=== PATIENT | female | born 1950 | race Caucasian/White ===

== ENCOUNTER 2019-06-18 23:16 | Inpatient (IN) ==
[2019-06-18] MEDS ORDERED: ACETAMINOPHEN 500 MG TABLET ONE (23:27)
[2019-06-18] MEDS ORDERED: ACETAMINOPHEN 500 MG TABLET PO STA (23:37)
[2019-06-18] MEDS ORDERED: SODIUM CHLORIDE 0.9% 1,000 ML IV STA (23:37)
[2019-06-18] MEDS ORDERED: PIPERACILLIN/TAZOBACTAM 3,375 MG in SODIUM CHLORIDE 0.9% 100 ML IV STA (23:37)
[2019-06-18 23:58] LABS: Basophils # 0.1 10*3/uL (0.0-0.2); Basophils % 0.6 % (0.0-0.8); Eosinophils # 0.3 10*3/uL (0.0-0.87); Eosinophils % 1.7 % (0.00-10.9); Hemoglobin 10.3 GM/DL (12.0-16.0); Immature Granulocytes % 1.1 %; Immature Granulocytes Absolute 0.17 #; Lymphocytes % 6.3 % (21.3-54.2); Mean Corpuscular HGB Conc 32.2 GM/DL (32-36); Mean Platelet Volume 9.3 FL (9.6-12.0); Monocytes % 6.8 % (1.7-12.7); Neutrophils % 83.5 % (38.7-73.9); Platelet Count 359 T/CUMM (130-400); Red Blood Count 3.44 MC/CUMM (3.8-5.5); Red Cell Distribution Width 15.5 % (9.3-17.3); White Blood Count 15.7 T/CUMM (4-12)
[2019-06-19 00:09] LABS: PT Patient Result 10.8 SECS (9.6-12.2)
[2019-06-19 00:21] LABS: Apearance,Urine CLOUDY (Clear); Bacteria,Urine Many /HPF (Few); Bilirubin,Urine Negative (Negative); Blood, Urine Small mg/dL (Negative); Glucose,Urine (UA) >=500 mg/dL (Negative); Ketones,Urine Negative (Negative); Nitrite,Urine Negative (Negative); Protein,Urine 30 MG/DL; RBC,Urine 28 /HPF (0-4); Renal Epithelial Cells,Urine Few /HPF (<1); Urine Color Amber (Yellow); Urine Urobilinogen < 2.0 EU/DL (0.2-1.0); WBC,Urine 461 /HPF (0-6)
[2019-06-19 01:39] LABS: Albumin 3.1 G/DL (3.4-5.0); Bilirubin,Total 0.9 MG/DL (0.2-1.0); Calcium 8.6 MG/DL (8.5-10.1); Osmolality,Calculated 288.8 MOS/KG (273-304); Total Protein 7.3 G/DL (6.4-8.3)
[2019-06-19] MEDS ORDERED: SODIUM CHLORIDE 0.9% 1,000 ML IV STA (01:55)
[2019-06-19] MEDS ORDERED: DEXTROSE 50% 25 GM/50 ML SYRINGE IV PRN (03:31)
[2019-06-19] MEDS ORDERED: GLUCAGON 1 MG VIAL IM PRN (03:31)
[2019-06-19] MEDS ORDERED: INSULIN REGULAR 100 UNIT/ML SUBCUT ONE (03:43)
[2019-06-19] MEDS ORDERED: DOCUSATE SODIUM 100 MG CAPSULE PO PRN (03:45)
[2019-06-19] MEDS ORDERED: ALBUTEROL 2.5 MG/3 ML NEB RESP TX PRN (03:45)
[2019-06-19] MEDS ORDERED: ACETAMINOPHEN 325 MG TABLET PO PRN (03:45)
[2019-06-19] MEDS ORDERED: ONDANSETRON 4 MG/2 ML VIAL IV PRN (03:45)
[2019-06-19] MEDS: LEVOFLOXACIN INJ 750 MG in PREMIX 1 EACH IV SCH (03:54)
[2019-06-19] MEDS ORDERED: SODIUM CHLORIDE 0.9% 200 ML IV ONE (03:55)
[2019-06-19] MEDS: SODIUM CHLORIDE 0.9% 1,000 ML IV SCH ×2 (04:08→10:46)
[2019-06-19] MEDS ORDERED: NOREPINEPHRINE 4 MG/4 ML VIAL IV ONE (05:20)
[2019-06-19] MEDS ORDERED: NOREPINEPHRINE 8 MG in SODIUM CHLORIDE 0.9% 242 ML IV PRN (05:32)
[2019-06-19] MEDS: ALBUTEROL/IPRATROPIUM 3 ML NEB RESP TX SCH ×3 (07:45→19:52)
[2019-06-19] MEDS: INSULIN REGULAR 100 UNIT/ML SUBCUT SCH ×4 (09:03→21:19)
[2019-06-19] MEDS: methylPREDNISolone SOD SUC 40 MG/1 ML VIAL IV SCH ×2 (11:05→20:19)
[2019-06-19] MEDS: PIPERACILLIN/TAZOBACTAM 3,375 MG in SODIUM CHLORIDE 0.9% 100 ML IV SCH ×2 (13:19→23:49)
[2019-06-19] MEDS: INSULIN GLARGINE 100 UNIT/ML SUBCUT SCH (17:30)
[2019-06-19] MEDS: DULoxetine 30 MG CAPSULE PO SCH (17:31)
[2019-06-19] MEDS: GABAPENTIN 300 MG CAPSULE PO SCH (21:21)
[2019-06-19] MEDS: ENOXAPARIN 30 MG/0.3 ML SYRINGE SUBCUT SCH (21:21)
[2019-06-20] MEDS: SODIUM CHLORIDE 0.9% 1,000 ML IV SCH ×4 (00:06→16:11)
[2019-06-20] MEDS: ALBUTEROL/IPRATROPIUM 3 ML NEB RESP TX SCH ×5 (00:15→23:58)
[2019-06-20 04:15] LABS: Basophils % 0.1 % (0.0-0.8); Hematocrit 26.2 VOL% (35.7-47.0); Hemoglobin 8.4 GM/DL (12.0-16.0); Immature Granulocytes % 1.1 %; Immature Granulocytes Absolute 0.13 #; Lymphocytes # 0.5 10*3/uL (1.4-4.0); Lymphocytes % 4.1 % (21.3-54.2); Mean Corpuscular HGB Conc 32.1 GM/DL (32-36); Mean Corpuscular Volume 93.2 FL (87-102); Mean Platelet Volume 9.6 FL (9.6-12.0); Monocytes % 1.4 % (1.7-12.7); Neutrophils % 93.3 % (38.7-73.9); Platelet Count 265 T/CUMM (130-400); Red Blood Count 2.81 MC/CUMM (3.8-5.5); Red Cell Distribution Width 15.8 % (9.3-17.3); White Blood Count 12.1 T/CUMM (4-12)
[2019-06-20] MEDS: methylPREDNISolone SOD SUC 40 MG/1 ML VIAL IV SCH ×2 (04:28→12:11)
[2019-06-20 04:32] LABS: Albumin 2.4 G/DL (3.4-5.0); Bilirubin,Total 1.5 MG/DL (0.2-1.0); Calcium 7.9 MG/DL (8.5-10.1); Osmolality,Calculated 296.1 MOS/KG (273-304); Total Protein 6.1 G/DL (6.4-8.3)
[2019-06-20 04:39] LABS: Hypochromasia 1+; Lymphocytes 3 % (20-55); Platelet Estimate Adequate; Segmented Neutrophils 97 % (50-85); Total Cells Counted 100
[2019-06-20] MEDS ORDERED: LEVOTHYROXINE 137 MCG TABLET PO SCH (06:30)
[2019-06-20] MEDS: INSULIN GLARGINE 100 UNIT/ML SUBCUT SCH ×2 (08:10→21:20)
[2019-06-20] MEDS: DULoxetine 30 MG CAPSULE PO SCH (08:10)
[2019-06-20] MEDS: GABAPENTIN 300 MG CAPSULE PO SCH ×3 (08:10→21:20)
[2019-06-20] MEDS: INSULIN REGULAR 100 UNIT/ML SUBCUT SCH ×4 (08:11→21:22)
[2019-06-20] MEDS: PIPERACILLIN/TAZOBACTAM 3,375 MG in SODIUM CHLORIDE 0.9% 100 ML IV SCH ×2 (12:11→23:48)
[2019-06-20] MEDS ORDERED: FUROSEMIDE 40 MG/4 ML VIAL IV ONE (16:59)
[2019-06-20] MEDS ORDERED: INSULIN REGULAR 100 UNIT/ML SUBCUT ONE (18:25)
[2019-06-20] MEDS: ENOXAPARIN 30 MG/0.3 ML SYRINGE SUBCUT SCH (21:19)
[2019-06-21 05:05] LABS: Basophils % 0.1 % (0.0-0.8); Hemoglobin 8.9 GM/DL (12.0-16.0); Immature Granulocytes Absolute 0.16 #; Lymphocytes # 1.5 10*3/uL (1.4-4.0); Lymphocytes % 9.2 % (21.3-54.2); Mean Corpuscular HGB Conc 31.8 GM/DL (32-36); Mean Platelet Volume 9.4 FL (9.6-12.0); Neutrophils % 83.7 % (38.7-73.9); Platelet Count 292 T/CUMM (130-400); Red Blood Count 3.01 MC/CUMM (3.8-5.5); Red Cell Distribution Width 16.1 % (9.3-17.3); White Blood Count 16.6 T/CUMM (4-12)
[2019-06-21] MEDS: LEVOFLOXACIN INJ 750 MG in PREMIX 1 EACH IV SCH (05:14)
[2019-06-21 05:43] LABS: Albumin 2.4 G/DL (3.4-5.0); Bilirubin,Total 0.7 MG/DL (0.2-1.0); Calcium 7.9 MG/DL (8.5-10.1); Osmolality,Calculated 291.4 MOS/KG (273-304); Total Protein 6.1 G/DL (6.4-8.3)
[2019-06-21] MEDS: ALBUTEROL/IPRATROPIUM 3 ML NEB RESP TX SCH ×3 (08:50→20:00)
[2019-06-21] MEDS: GABAPENTIN 300 MG CAPSULE PO SCH ×3 (09:22→20:47)
[2019-06-21] MEDS: methylPREDNISolone SOD SUC 40 MG/1 ML VIAL IV SCH (09:23)
[2019-06-21] MEDS: INSULIN REGULAR 100 UNIT/ML SUBCUT SCH ×7 (09:23→20:48)
[2019-06-21] MEDS: DULoxetine 30 MG CAPSULE PO SCH (09:23)
[2019-06-21] MEDS: INSULIN GLARGINE 100 UNIT/ML SUBCUT SCH ×2 (11:41→20:49)
[2019-06-21] MEDS: PIPERACILLIN/TAZOBACTAM 3,375 MG in SODIUM CHLORIDE 0.9% 100 ML IV SCH ×2 (12:28→23:19)
[2019-06-21] MEDS: ENOXAPARIN 30 MG/0.3 ML SYRINGE SUBCUT SCH (20:47)
[2019-06-22] MEDS: ALBUTEROL/IPRATROPIUM 3 ML NEB RESP TX SCH ×4 (01:20→19:53)
[2019-06-22 05:01] LABS: Basophils % 0.2 % (0.0-0.8); Eosinophils % 0.1 % (0.00-10.9); Hematocrit 26.9 VOL% (35.7-47.0); Hemoglobin 8.3 GM/DL (12.0-16.0); Immature Granulocytes % 1.1 %; Immature Granulocytes Absolute 0.13 #; Lymphocytes # 1.7 10*3/uL (1.4-4.0); Lymphocytes % 14.8 % (21.3-54.2); Mean Corpuscular HGB Conc 30.9 GM/DL (32-36); Mean Corpuscular Volume 95.7 FL (87-102); Mean Platelet Volume 9.2 FL (9.6-12.0); Monocytes % 9.5 % (1.7-12.7); Neutrophils % 74.3 % (38.7-73.9); Platelet Count 277 T/CUMM (130-400); Red Blood Count 2.81 MC/CUMM (3.8-5.5); White Blood Count 11.3 T/CUMM (4-12)
[2019-06-22 05:39] LABS: Calcium 8.1 MG/DL (8.5-10.1); Osmolality,Calculated 291.4 MOS/KG (273-304)
[2019-06-22] MEDS: INSULIN REGULAR 100 UNIT/ML SUBCUT SCH ×7 (08:25→21:22)
[2019-06-22] MEDS: INSULIN GLARGINE 100 UNIT/ML SUBCUT SCH ×2 (08:26→21:21)
[2019-06-22] MEDS: GABAPENTIN 300 MG CAPSULE PO SCH ×3 (09:55→21:21)
[2019-06-22] MEDS: DULoxetine 30 MG CAPSULE PO SCH (09:55)
[2019-06-22] MEDS: methylPREDNISolone SOD SUC 40 MG/1 ML VIAL IV SCH (09:56)
[2019-06-22] MEDS: PIPERACILLIN/TAZOBACTAM 3,375 MG in SODIUM CHLORIDE 0.9% 100 ML IV SCH (12:35)
[2019-06-22] MEDS: ENOXAPARIN 30 MG/0.3 ML SYRINGE SUBCUT SCH (21:20)
[2019-06-23] MEDS: PIPERACILLIN/TAZOBACTAM 3,375 MG in SODIUM CHLORIDE 0.9% 100 ML IV SCH ×2 (00:16→12:45)
[2019-06-23] MEDS: ALBUTEROL/IPRATROPIUM 3 ML NEB RESP TX SCH ×4 (01:10→20:16)
[2019-06-23] MEDS: LEVOFLOXACIN INJ 750 MG in PREMIX 1 EACH IV SCH (04:29)
[2019-06-23 05:15] LABS: Basophils % 0.2 % (0.0-0.8); Eosinophils # 0.1 10*3/uL (0.0-0.87); Eosinophils % 0.8 % (0.00-10.9); Hematocrit 27.3 VOL% (35.7-47.0); Hemoglobin 8.5 GM/DL (12.0-16.0); Immature Granulocytes % 1.3 %; Immature Granulocytes Absolute 0.12 #; Lymphocytes # 1.7 10*3/uL (1.4-4.0); Lymphocytes % 18.2 % (21.3-54.2); Mean Corpuscular HGB Conc 31.1 GM/DL (32-36); Mean Corpuscular Volume 93.5 FL (87-102); Mean Platelet Volume 9.2 FL (9.6-12.0); Neutrophils % 69.5 % (38.7-73.9); Platelet Count 284 T/CUMM (130-400); Red Blood Count 2.92 MC/CUMM (3.8-5.5); Red Cell Distribution Width 16.1 % (9.3-17.3); White Blood Count 9.1 T/CUMM (4-12)
[2019-06-23 06:03] LABS: Calcium 8.1 MG/DL (8.5-10.1); Osmolality,Calculated 289.3 MOS/KG (273-304)
[2019-06-23] MEDS: INSULIN REGULAR 100 UNIT/ML SUBCUT SCH ×7 (08:08→21:48)
[2019-06-23] MEDS: INSULIN GLARGINE 100 UNIT/ML SUBCUT SCH ×2 (08:08→21:46)
[2019-06-23] MEDS: methylPREDNISolone SOD SUC 40 MG/1 ML VIAL IV SCH (09:22)
[2019-06-23] MEDS: DULoxetine 30 MG CAPSULE PO SCH (09:22)
[2019-06-23] MEDS: GABAPENTIN 300 MG CAPSULE PO SCH ×3 (09:22→21:52)
[2019-06-23] MEDS: ENOXAPARIN 30 MG/0.3 ML SYRINGE SUBCUT SCH (21:44)
[2019-06-24] MEDS: PIPERACILLIN/TAZOBACTAM 3,375 MG in SODIUM CHLORIDE 0.9% 100 ML IV SCH ×2 (00:52→13:57)
[2019-06-24] MEDS: ALBUTEROL/IPRATROPIUM 3 ML NEB RESP TX SCH ×4 (01:02→19:55)
[2019-06-24] MEDS ORDERED: DEXTROSE 10% 250 ML IV ONE (08:04)
[2019-06-24] MEDS ORDERED: DEXTROSE 10% 250 ML IV PRN (08:09)
[2019-06-24] MEDS: INSULIN REGULAR 100 UNIT/ML SUBCUT SCH ×6 (08:14→21:11)
[2019-06-24] MEDS: INSULIN GLARGINE 100 UNIT/ML SUBCUT SCH ×2 (08:15→20:23)
[2019-06-24] MEDS: methylPREDNISolone SOD SUC 40 MG/1 ML VIAL IV SCH (09:20)
[2019-06-24] MEDS: DULoxetine 30 MG CAPSULE PO SCH (09:21)
[2019-06-24] MEDS: GABAPENTIN 300 MG CAPSULE PO SCH ×3 (09:21→21:12)
[2019-06-24] MEDS: ENOXAPARIN 30 MG/0.3 ML SYRINGE SUBCUT SCH (21:11)
[2019-06-25] MEDS: ALBUTEROL/IPRATROPIUM 3 ML NEB RESP TX SCH ×3 (00:37→14:00)
[2019-06-25 05:00] LABS: Basophils % 0.4 % (0.0-0.8); Eosinophils # 0.2 10*3/uL (0.0-0.87); Hemoglobin 9.1 GM/DL (12.0-16.0); Immature Granulocytes % 1.2 %; Immature Granulocytes Absolute 0.13 #; Lymphocytes # 2.4 10*3/uL (1.4-4.0); Lymphocytes % 22.5 % (21.3-54.2); Mean Corpuscular HGB Conc 31.4 GM/DL (32-36); Mean Corpuscular Volume 94.2 FL (87-102); Mean Platelet Volume 9.2 FL (9.6-12.0); Monocytes % 9.5 % (1.7-12.7); Neutrophils % 64.4 % (38.7-73.9); Platelet Count 299 T/CUMM (130-400); Red Blood Count 3.08 MC/CUMM (3.8-5.5); Red Cell Distribution Width 15.9 % (9.3-17.3); White Blood Count 10.7 T/CUMM (4-12)
[2019-06-25 05:18] LABS: Calcium 8.5 MG/DL (8.5-10.1); Osmolality,Calculated 287.5 MOS/KG (273-304)
[2019-06-25] MEDS ORDERED: LEVOFLOXACIN 750 MG TABLET PO SCH (06:00)
[2019-06-25] MEDS: INSULIN REGULAR 100 UNIT/ML SUBCUT SCH ×2 (08:23→12:39)
[2019-06-25] MEDS ORDERED: predniSONE 20 MG TABLET PO SCH ×2 (09:00)
[2019-06-25] MEDS: INSULIN GLARGINE 100 UNIT/ML SUBCUT SCH (09:29)
[2019-06-25] MEDS: GABAPENTIN 300 MG CAPSULE PO SCH ×2 (09:33→15:07)
[2019-06-25] MEDS: DULoxetine 30 MG CAPSULE PO SCH (09:33)
[2019-06-25 12:39] VITALS: BP 128/73
== END 2019-06-25 16:25 | disposition home or self-care (01) | DRG 871 ==
LOC: N.ED 23:16 → SUATTDRO 06-19 02:34 → N.EDINP 06-19 02:34 → N.CC 06-19 02:48 → N.3E 06-21 16:43
PROVIDERS: ADMIT Internal Medicine; ATTEND Internal Medicine

== ENCOUNTER 2019-07-19 17:42 | Inpatient (IN) ==
[2019-07-19] MEDS ORDERED: DEXTROSE 50% 25 GM/50 ML VIAL IV STA (18:27)
[2019-07-19] MEDS ORDERED: CALCIUM CHLORIDE 1,000 MG/10 ML SYRINGE IV STA (18:27)
[2019-07-19] MEDS ORDERED: ALBUTEROL NEB SOLN 5 MG/ML 20 ML/BOTTLE CONT NEB STA (18:27)
[2019-07-19] MEDS ORDERED: INSULIN REGULAR 100 UNIT/ML IV ONE (18:27)
[2019-07-19] MEDS ORDERED: SODIUM CHLORIDE 0.9% 1,000 ML IV STA (18:27)
[2019-07-19] MEDS ORDERED: SODIUM BICARB INJ 50 MEQ in DEXTROSE 5% 1,000 ML IV SCH (18:30)
[2019-07-19] MEDS ORDERED: SODIUM BICARBONATE 50 MEQ/50 ML VIAL IV ONE (18:35)
[2019-07-19] MEDS ORDERED: DEXTROSE 50% 25 GM/50 ML SYRINGE IV ONE (18:37)
[2019-07-19 18:44] LABS: Basophils % 0.4 % (0.0-0.8); Eosinophils # 0.3 10*3/uL (0.0-0.87); Eosinophils % 4.4 % (0.00-10.9); Hemoglobin 11.1 GM/DL (12.0-16.0); Immature Granulocytes % 1.7 %; Immature Granulocytes Absolute 0.12 #; Lymphocytes # 1.4 10*3/uL (1.4-4.0); Lymphocytes % 20.3 % (21.3-54.2); Mean Corpuscular HGB Conc 31.7 GM/DL (32-36); Mean Corpuscular Volume 92.3 FL (87-102); Mean Platelet Volume 9.5 FL (9.6-12.0); Monocytes % 7.1 % (1.7-12.7); Neutrophils % 66.1 % (38.7-73.9); Platelet Count 271 T/CUMM (130-400); Red Blood Count 3.79 MC/CUMM (3.8-5.5); White Blood Count 6.9 T/CUMM (4-12)
[2019-07-19 18:59] LABS: Alanine Aminotransferase 20 U/L (13-56); Albumin 2.9 G/DL (3.4-5.0); Alkaline Phosphatase 182 U/L (45-117); Aspartate Amino Transferase 14 U/L (0-37); Bilirubin,Total < 0.39 MG/DL (0.2-1.0); Blood Urea Nitrogen 71 MG/DL (7-18); Calcium 7.8 MG/DL (8.5-10.1); Estimated Glom Filtration Rate 13 ML/MIN; Ferritin 109.2 ng/ml (8-252); Glucose 210 MG/DL (74-106); Osmolality,Calculated 290.5 MOS/KG (273-304); Total Protein 6.9 G/DL (6.4-8.3); Troponin I < 0.015 NG/ML (0.00-0.045)
[2019-07-19 19:11] LABS: Apearance,Urine Slightly Hazy (Clear); Bacteria,Urine Occasional /HPF (Few); Bilirubin,Urine Negative (Negative); Blood, Urine Moderate mg/dL (Negative); Glucose,Urine (UA) 50 mg/dL (Negative); Ketones,Urine Negative (Negative); Nitrite,Urine Negative (Negative); Protein,Urine Negative; RBC,Urine 7 /HPF (0-4); Squamous Epithelial Cell,Urine Occasional /HPF (0-10); Urine Color Yellow (Yellow); Urine Specific Gravity 1.006 (1.001-1.035); Urine Urobilinogen < 2.0 EU/DL (0.2-1.0); WBC,Urine 80 /HPF (0-6)
[2019-07-19] MEDS ORDERED: LEVOFLOXACIN INJ 750 MG in PREMIX 1 EACH IV STA (19:13)
[2019-07-19] MEDS ORDERED: fentaNYL 100 MCG/2 ML VIAL IV STA (19:16)
[2019-07-19] MEDS ORDERED: DEXTROSE 50% 25 GM/50 ML SYRINGE IV PRN (23:35)
[2019-07-19] MEDS ORDERED: HYDROmorphone 2 MG/1 ML VIAL IV PRN (23:35)
[2019-07-19] MEDS ORDERED: ALBUTEROL 2.5 MG/3 ML NEB RESP TX PRN (23:35)
[2019-07-19] MEDS ORDERED: MECLIZINE 25 MG TABLET PO PRN (23:35)
[2019-07-19] MEDS ORDERED: MELATONIN 3 MG TABLET PO PRN (23:35)
[2019-07-19] MEDS ORDERED: ONDANSETRON 4 MG/2 ML VIAL IV PRN (23:35)
[2019-07-19] MEDS ORDERED: GLUCAGON 1 MG VIAL IM PRN (23:35)
[2019-07-20] MEDS: ALBUTEROL/IPRATROPIUM 3 ML NEB RESP TX SCH ×4 (00:53→19:30)
[2019-07-20] MEDS: SODIUM CHLORIDE 0.9% 1,000 ML IV SCH ×2 (01:52→12:47)
[2019-07-20] MEDS: MAGNESIUM CHLORIDE 64 MG TABLET PO SCH ×3 (01:53→22:00)
[2019-07-20] MEDS: PIPERACILLIN/TAZOBACTAM 3,375 MG in SODIUM CHLORIDE 0.9% 100 ML IV SCH ×2 (01:53→13:46)
[2019-07-20] MEDS: METOPROLOL TARTRATE 25 MG TABLET PO SCH ×3 (01:54→22:00)
[2019-07-20] MEDS: azaTHIOprine 50 MG TABLET PO SCH ×3 (01:54→22:00)
[2019-07-20] MEDS: CALCIUM (CARBONATE)/VITAMIN D 600 MG-400 UNIT TABLET PO SCH ×3 (01:54→22:00)
[2019-07-20 05:26] LABS: Basophils % 0.4 % (0.0-0.8); Eosinophils # 0.3 10*3/uL (0.0-0.87); Hematocrit 29.4 VOL% (35.7-47.0); Hemoglobin 9.4 GM/DL (12.0-16.0); Immature Granulocytes Absolute 0.14 #; Lymphocytes # 1.6 10*3/uL (1.4-4.0); Lymphocytes % 22.7 % (21.3-54.2); Mean Corpuscular Volume 92.2 FL (87-102); Mean Platelet Volume 9.6 FL (9.6-12.0); Monocytes % 8.8 % (1.7-12.7); Neutrophils % 62.1 % (38.7-73.9); Platelet Count 249 T/CUMM (130-400); Red Blood Count 3.19 MC/CUMM (3.8-5.5); Red Cell Distribution Width 14.9 % (9.3-17.3)
[2019-07-20 05:59] LABS: Calcium 8.1 MG/DL (8.5-10.1); Osmolality,Calculated 293.1 MOS/KG (273-304); Thyroid Stimulating Hormone 91.8 uIU/ml (0.358-3.74)
[2019-07-20] MEDS: LEVOTHYROXINE 150 MCG TABLET PO SCH (06:07)
[2019-07-20] MEDS: INSULIN REGULAR 100 UNIT/ML SUBCUT SCH ×4 (08:23→22:01)
[2019-07-20] MEDS: INSULIN GLARGINE 100 UNIT/ML SUBCUT SCH (09:29)
[2019-07-20] MEDS: CYCLOBENZAPRINE 10 MG TABLET PO PRN (09:31)
[2019-07-20] MEDS: PILOCARPINE 5 MG TABLET PO SCH ×3 (09:31→22:00)
[2019-07-20] MEDS: CETIRIZINE 10 MG TABLET PO SCH (09:31)
[2019-07-20] MEDS: DULoxetine 30 MG CAPSULE PO SCH (09:33)
[2019-07-20] MEDS: GABAPENTIN 300 MG CAPSULE PO SCH ×3 (09:33→22:00)
[2019-07-20] MEDS: PANTOPRAZOLE 40 MG TABLET PO SCH (09:33)
[2019-07-20] MEDS: ACETAMINOPHEN 325 MG TABLET PO PRN (09:34)
[2019-07-20] MEDS: ROSUVASTATIN 20 MG TABLET PO SCH (09:39)
[2019-07-21] MEDS: ALBUTEROL/IPRATROPIUM 3 ML NEB RESP TX SCH ×4 (01:06→19:56)
[2019-07-21] MEDS: PIPERACILLIN/TAZOBACTAM 3,375 MG in SODIUM CHLORIDE 0.9% 100 ML IV SCH ×2 (04:01→15:18)
[2019-07-21 04:51] LABS: Basophils # 0.1 10*3/uL (0.0-0.2); Basophils % 0.6 % (0.0-0.8); Eosinophils # 0.3 10*3/uL (0.0-0.87); Eosinophils % 3.4 % (0.00-10.9); Hematocrit 31.7 VOL% (35.7-47.0); Immature Granulocytes % 2.8 %; Immature Granulocytes Absolute 0.22 #; Lymphocytes # 1.8 10*3/uL (1.4-4.0); Lymphocytes % 22.3 % (21.3-54.2); Mean Corpuscular HGB Conc 31.5 GM/DL (32-36); Mean Platelet Volume 9.3 FL (9.6-12.0); Monocytes % 8.5 % (1.7-12.7); Neutrophils % 62.4 % (38.7-73.9); Platelet Count 272 T/CUMM (130-400); Red Blood Count 3.41 MC/CUMM (3.8-5.5); White Blood Count 7.9 T/CUMM (4-12)
[2019-07-21 05:16] LABS: Calcium 8.2 MG/DL (8.5-10.1); Osmolality,Calculated 282.8 MOS/KG (273-304)
[2019-07-21] MEDS: LEVOTHYROXINE 150 MCG TABLET PO SCH (05:34)
[2019-07-21] MEDS: INSULIN REGULAR 100 UNIT/ML SUBCUT SCH ×4 (07:48→22:26)
[2019-07-21] MEDS: DULoxetine 30 MG CAPSULE PO SCH (08:32)
[2019-07-21] MEDS: CYCLOBENZAPRINE 10 MG TABLET PO PRN (08:32)
[2019-07-21] MEDS: MAGNESIUM CHLORIDE 64 MG TABLET PO SCH ×2 (08:32→22:27)
[2019-07-21] MEDS: PANTOPRAZOLE 40 MG TABLET PO SCH (08:32)
[2019-07-21] MEDS: GABAPENTIN 300 MG CAPSULE PO SCH ×3 (08:33→22:27)
[2019-07-21] MEDS: azaTHIOprine 50 MG TABLET PO SCH ×2 (08:33→22:26)
[2019-07-21] MEDS: PILOCARPINE 5 MG TABLET PO SCH ×3 (08:33→22:27)
[2019-07-21] MEDS: CETIRIZINE 10 MG TABLET PO SCH (08:33)
[2019-07-21] MEDS: ROSUVASTATIN 20 MG TABLET PO SCH (08:34)
[2019-07-21] MEDS: CALCIUM (CARBONATE)/VITAMIN D 600 MG-400 UNIT TABLET PO SCH ×2 (08:34→22:26)
[2019-07-21] MEDS: METOPROLOL TARTRATE 25 MG TABLET PO SCH ×2 (08:34→22:26)
[2019-07-21] MEDS: INSULIN GLARGINE 100 UNIT/ML SUBCUT SCH (10:54)
[2019-07-21] MEDS ORDERED: TAMSULOSIN 0.4 MG CAPSULE PO ONE (11:25)
[2019-07-21] MEDS: ACETAMINOPHEN 325 MG TABLET PO PRN (13:15)
[2019-07-22] MEDS: ALBUTEROL/IPRATROPIUM 3 ML NEB RESP TX SCH ×4 (00:35→20:23)
[2019-07-22] MEDS: SODIUM CHLORIDE 0.9% 1,000 ML IV SCH ×4 (03:13→21:35)
[2019-07-22] MEDS: PIPERACILLIN/TAZOBACTAM 3,375 MG in SODIUM CHLORIDE 0.9% 100 ML IV SCH ×2 (04:32→16:16)
[2019-07-22 05:23] LABS: Basophils % 0.5 % (0.0-0.8); Eosinophils # 0.2 10*3/uL (0.0-0.87); Eosinophils % 2.9 % (0.00-10.9); Hematocrit 30.9 VOL% (35.7-47.0); Hemoglobin 9.8 GM/DL (12.0-16.0); Immature Granulocytes % 1.8 %; Immature Granulocytes Absolute 0.14 #; Lymphocytes # 1.4 10*3/uL (1.4-4.0); Lymphocytes % 17.6 % (21.3-54.2); Mean Corpuscular HGB Conc 31.7 GM/DL (32-36); Mean Corpuscular Volume 91.4 FL (87-102); Mean Platelet Volume 9.1 FL (9.6-12.0); Monocytes % 6.4 % (1.7-12.7); Neutrophils % 70.8 % (38.7-73.9); Platelet Count 275 T/CUMM (130-400); Red Blood Count 3.38 MC/CUMM (3.8-5.5); Red Cell Distribution Width 14.7 % (9.3-17.3); White Blood Count 7.9 T/CUMM (4-12)
[2019-07-22 06:02] LABS: Calcium 8.6 MG/DL (8.5-10.1); Osmolality,Calculated 281.8 MOS/KG (273-304)
[2019-07-22] MEDS: LEVOTHYROXINE 150 MCG TABLET PO SCH (06:41)
[2019-07-22] MEDS: INSULIN REGULAR 100 UNIT/ML SUBCUT SCH ×4 (09:02→21:15)
[2019-07-22] MEDS: MAGNESIUM CHLORIDE 64 MG TABLET PO SCH ×2 (09:03→21:15)
[2019-07-22] MEDS: CALCIUM (CARBONATE)/VITAMIN D 600 MG-400 UNIT TABLET PO SCH ×2 (09:03→21:14)
[2019-07-22] MEDS: CETIRIZINE 10 MG TABLET PO SCH (09:03)
[2019-07-22] MEDS: GABAPENTIN 300 MG CAPSULE PO SCH ×3 (09:03→21:15)
[2019-07-22] MEDS: INSULIN GLARGINE 100 UNIT/ML SUBCUT SCH (09:03)
[2019-07-22] MEDS: PANTOPRAZOLE 40 MG TABLET PO SCH (09:03)
[2019-07-22] MEDS: ROSUVASTATIN 20 MG TABLET PO SCH (09:03)
[2019-07-22] MEDS: TAMSULOSIN 0.4 MG CAPSULE PO SCH (09:03)
[2019-07-22] MEDS: DULoxetine 30 MG CAPSULE PO SCH (09:03)
[2019-07-22] MEDS: azaTHIOprine 50 MG TABLET PO SCH ×2 (09:03→21:15)
[2019-07-22] MEDS: PILOCARPINE 5 MG TABLET PO SCH ×3 (09:03→21:15)
[2019-07-22] MEDS: METOPROLOL TARTRATE 25 MG TABLET PO SCH ×2 (09:04→21:14)
[2019-07-23] MEDS: ALBUTEROL/IPRATROPIUM 3 ML NEB RESP TX SCH ×2 (01:47→07:34)
[2019-07-23] MEDS: PIPERACILLIN/TAZOBACTAM 3,375 MG in SODIUM CHLORIDE 0.9% 100 ML IV SCH (03:44)
[2019-07-23] MEDS: LEVOTHYROXINE 150 MCG TABLET PO SCH (06:09)
[2019-07-23 06:38] LABS: Basophils # 0.1 10*3/uL (0.0-0.2); Basophils % 0.6 % (0.0-0.8); Eosinophils # 0.2 10*3/uL (0.0-0.87); Eosinophils % 2.6 % (0.00-10.9); Hematocrit 31.9 VOL% (35.7-47.0); Immature Granulocytes % 2.6 %; Immature Granulocytes Absolute 0.22 #; Lymphocytes # 1.5 10*3/uL (1.4-4.0); Lymphocytes % 17.8 % (21.3-54.2); Mean Corpuscular HGB Conc 31.3 GM/DL (32-36); Mean Corpuscular Volume 93.8 FL (87-102); Mean Platelet Volume 8.9 FL (9.6-12.0); Monocytes % 6.5 % (1.7-12.7); Neutrophils % 69.9 % (38.7-73.9); Platelet Count 287 T/CUMM (130-400); Red Cell Distribution Width 14.8 % (9.3-17.3); White Blood Count 8.4 T/CUMM (4-12)
[2019-07-23 06:55] LABS: Calcium 8.5 MG/DL (8.5-10.1); Osmolality,Calculated 280.7 MOS/KG (273-304)
[2019-07-23] MEDS: INSULIN REGULAR 100 UNIT/ML SUBCUT SCH ×2 (08:09→11:35)
[2019-07-23 08:13] VITALS: BP 146/76
[2019-07-23] MEDS: DULoxetine 30 MG CAPSULE PO SCH (08:50)
[2019-07-23] MEDS: MAGNESIUM CHLORIDE 64 MG TABLET PO SCH (08:50)
[2019-07-23] MEDS: PANTOPRAZOLE 40 MG TABLET PO SCH (08:50)
[2019-07-23] MEDS: TAMSULOSIN 0.4 MG CAPSULE PO SCH (08:50)
[2019-07-23] MEDS: INSULIN GLARGINE 100 UNIT/ML SUBCUT SCH (08:51)
[2019-07-23] MEDS: azaTHIOprine 50 MG TABLET PO SCH (08:51)
[2019-07-23] MEDS: GABAPENTIN 300 MG CAPSULE PO SCH (08:51)
[2019-07-23] MEDS: CETIRIZINE 10 MG TABLET PO SCH (08:51)
[2019-07-23] MEDS: CALCIUM (CARBONATE)/VITAMIN D 600 MG-400 UNIT TABLET PO SCH (08:51)
[2019-07-23] MEDS: METOPROLOL TARTRATE 25 MG TABLET PO SCH (08:51)
[2019-07-23] MEDS: ROSUVASTATIN 20 MG TABLET PO SCH (08:51)
[2019-07-23] MEDS: SODIUM CHLORIDE 0.9% 1,000 ML IV SCH (08:52)
[2019-07-23] MEDS: PILOCARPINE 5 MG TABLET PO SCH (08:53)
== END 2019-07-23 11:51 | disposition home or self-care (01) | DRG 683 ==
LOC: N.ED 17:42 → N.EDINP 22:23 → N.3E 23:04
PROVIDERS: ADMIT Internal Medicine; ATTEND Internal Medicine

== ENCOUNTER 2021-01-03 18:36 | Inpatient (IN) ==
[2021-01-03 20:30] LABS: Basophils # 0.1 10*3/uL (0.0-0.2); Basophils % 0.4 % (0.0-0.8); Eosinophils % 0.2 % (0.00-10.9); Hematocrit 47.8 VOL% (35.7-47.0); Hemoglobin 14.7 GM/DL (12.0-16.0); Immature Granulocytes % 1.2 %; Immature Granulocytes Absolute 0.23 #; Lymphocytes # 0.7 10*3/uL (1.4-4.0); Lymphocytes % 3.5 % (21.3-54.2); Mean Corpuscular HGB Conc 30.8 GM/DL (32-36); Mean Corpuscular Volume 104.6 FL (87-102); Mean Platelet Volume 10.4 FL (9.6-12.0); Monocytes % 3.2 % (1.7-12.7); NRBC # 0.02 10*3/uL; Neutrophils % 91.5 % (38.7-73.9); Platelet Count 216 T/CUMM (130-400); Red Blood Count 4.57 MC/CUMM (3.8-5.5); Red Cell Distribution Width 17.4 % (9.3-17.3); White Blood Count 19.9 T/CUMM (4-12)
[2021-01-03] MEDS ORDERED: VANCOMYCIN INJ 1,000 MG in SODIUM CHLORIDE 0.9% 250 ML IV STA (20:45)
[2021-01-03] MEDS ORDERED: PIPERACILLIN/TAZOBACTAM 3,375 MG in SODIUM CHLORIDE 0.9% 100 ML IV STA (20:45)
[2021-01-03 20:46] LABS: Alanine Aminotransferase 16 U/L (13-56); Albumin 3.3 G/DL (3.4-5.0); Alkaline Phosphatase 120 U/L (45-117); Aspartate Amino Transferase 18 U/L (0-37); Blood Urea Nitrogen 37 MG/DL (7-18); Calcium 7.7 MG/DL (8.5-10.1); Carbon Dioxide 23 MMOL/L (21-32); Estimated Glom Filtration Rate 31 ML/MIN; Glucose 168 MG/DL (74-106); Osmolality,Calculated 285.8 MOS/KG (273-304); Potassium 4.7 MMOL/L (3.5-5.1); Sodium 137 MMOL/L (136-145); Total Protein 6.9 G/DL (6.4-8.2)
[2021-01-03] MEDS ORDERED: GLUCAGON 1 MG VIAL IM PRN (21:40)
[2021-01-03] MEDS ORDERED: DEXTROSE 50% 25 GM/50 ML VIAL IV PRN (21:40)
[2021-01-03] MEDS ORDERED: SIMETHICONE CHEW 125 MG TABLET PO PRN (21:46)
[2021-01-03] MEDS ORDERED: SODIUM CHLORIDE 0.9% 1,000 ML IV SCH (22:00)
[2021-01-03 22:02] LABS: Band Neutrophils 2 % (0-10); Lymphocytes 6 % (20-55); Platelet Estimate Normal; Segmented Neutrophils 89 % (50-85); Total Cells Counted 100
[2021-01-03] MEDS: HEPARIN 5,000 UNIT/1 ML VIAL SUBCUT SCH (22:21)
[2021-01-03] MEDS ORDERED: MECLIZINE 25 MG TABLET PO PRN (23:05)
[2021-01-03] MEDS: METOPROLOL TARTRATE 50 MG TABLET PO SCH (23:44)
[2021-01-03] MEDS: ACETAMINOPHEN 325 MG TABLET PO PRN (23:45)
[2021-01-04] MEDS ORDERED: INFLUENZA VIRUS VACCINE 0.5 ML SYRINGE IM ONE (01:43)
[2021-01-04 05:39] LABS: Basophils # 0.1 10*3/uL (0.0-0.2); Basophils % 0.5 % (0.0-0.8); Eosinophils # 0.1 10*3/uL (0.0-0.87); Eosinophils % 0.6 % (0.00-10.9); Hematocrit 43.9 VOL% (35.7-47.0); Hemoglobin 13.8 GM/DL (12.0-16.0); Immature Granulocytes % 1.1 %; Immature Granulocytes Absolute 0.22 #; Lymphocytes # 0.6 10*3/uL (1.4-4.0); Mean Corpuscular HGB Conc 31.4 GM/DL (32-36); Mean Corpuscular Volume 105.5 FL (87-102); Mean Platelet Volume 10.5 FL (9.6-12.0); Monocytes % 4.1 % (1.7-12.7); NRBC # 0.03 10*3/uL; Neutrophils % 90.7 % (38.7-73.9); Platelet Count 197 T/CUMM (130-400); Red Blood Count 4.16 MC/CUMM (3.8-5.5); Red Cell Distribution Width 17.5 % (9.3-17.3); White Blood Count 19.7 T/CUMM (4-12)
[2021-01-04] MEDS ORDERED: SODIUM CHLORIDE 0.9% 1,000 ML IV SCH ×2 (06:30)
[2021-01-04 06:33] LABS: Anisocytosis 1+; Band Neutrophils 9 % (0-10); Eosinophils 1 % (0-10); Lymphocytes 2 % (20-55); Macrocytosis 2+; Nucleated Red Blood Cells 3 (0-5); Platelet Estimate Normal; Segmented Neutrophils 82 % (50-85); Stomatocytes Few; Total Cells Counted 100
[2021-01-04] MEDS: PIPERACILLIN/TAZOBACTAM 3,375 MG in SODIUM CHLORIDE 0.9% 100 ML IV SCH ×3 (06:51→23:00)
[2021-01-04] MEDS: HEPARIN 5,000 UNIT/1 ML VIAL SUBCUT SCH ×3 (06:52→22:12)
[2021-01-04] MEDS ORDERED: ALBUTEROL 2.5 MG/3 ML NEB RESP TX PRN (07:12)
[2021-01-04 08:26] LABS: Calcium 7.3 MG/DL (8.5-10.1); Osmolality,Calculated 285.7 MOS/KG (273-304); Potassium 4.4 MMOL/L (3.5-5.1); Risk Ratio 7.09; Thyroid Stimulating Hormone 0.475 uIU/ml (0.358-3.74); VLDL Cholesterol 41.4 MG/DL
[2021-01-04] MEDS ORDERED: NITROFURANTOIN MACRO/MONO 100 MG CAPSULE PO SCH (09:00)
[2021-01-04] MEDS: PILOCARPINE 5 MG TABLET PO SCH ×4 (09:45→23:03)
[2021-01-04] MEDS: azaTHIOprine 50 MG TABLET PO SCH ×3 (09:45→23:01)
[2021-01-04] MEDS: ESTRADIOL 1 MG TABLET PO SCH (09:45)
[2021-01-04] MEDS: METOPROLOL TARTRATE 50 MG TABLET PO SCH ×3 (09:45→23:02)
[2021-01-04] MEDS: DULoxetine 30 MG CAPSULE PO SCH (09:46)
[2021-01-04] MEDS: CETIRIZINE 10 MG TABLET PO SCH (09:46)
[2021-01-04] MEDS: GABAPENTIN 300 MG CAPSULE PO SCH ×3 (09:46→22:07)
[2021-01-04] MEDS: INSULIN REGULAR 100 UNIT/ML SUBCUT SCH ×4 (09:46→21:48)
[2021-01-04] MEDS: LEVOTHYROXINE 137 MCG TABLET PO SCH (09:46)
[2021-01-04] MEDS: MAGNESIUM CHLORIDE 71.5 MG PO SCH ×2 (09:46→22:09)
[2021-01-04] MEDS: PANTOPRAZOLE 40 MG TABLET PO SCH (09:46)
[2021-01-04] MEDS: ALBUTEROL/IPRATROPIUM 3 ML NEB RESP TX SCH ×2 (14:21→19:45)
[2021-01-04] MEDS ORDERED: VANCOMYCIN INJ 1,000 MG in SODIUM CHLORIDE 0.9% 250 ML IV SCH (22:00)
[2021-01-04] MEDS: ATORVASTATIN 40 MG TABLET PO SCH ×2 (22:08→23:04)
[2021-01-04] MEDS ORDERED: LEVOFLOXACIN INJ 500 MG/100 ML PREMIX IV SCH (23:00)
[2021-01-04] MEDS ORDERED: LEVOFLOXACIN INJ 500 MG/100 ML PREMIX IV ONE (23:30)
[2021-01-05] MEDS: ALBUTEROL/IPRATROPIUM 3 ML NEB RESP TX SCH ×4 (00:57→19:47)
[2021-01-05 05:05] LABS: Basophils # 0.1 10*3/uL (0.0-0.2); Basophils % 0.5 % (0.0-0.8); Eosinophils # 0.3 10*3/uL (0.0-0.87); Eosinophils % 1.6 % (0.00-10.9); Hematocrit 45.8 VOL% (35.7-47.0); Hemoglobin 14.1 GM/DL (12.0-16.0); Immature Granulocytes % 0.8 %; Immature Granulocytes Absolute 0.14 #; Lymphocytes # 0.8 10*3/uL (1.4-4.0); Lymphocytes % 4.9 % (21.3-54.2); Mean Corpuscular HGB Conc 30.8 GM/DL (32-36); Mean Corpuscular Volume 107.5 FL (87-102); Mean Platelet Volume 10.1 FL (9.6-12.0); Monocytes % 5.7 % (1.7-12.7); NRBC # 0.04 10*3/uL; Neutrophils % 86.5 % (38.7-73.9); Platelet Count 213 T/CUMM (130-400); Red Blood Count 4.26 MC/CUMM (3.8-5.5); Red Cell Distribution Width 17.6 % (9.3-17.3); White Blood Count 17.3 T/CUMM (4-12)
[2021-01-05] MEDS: HEPARIN 5,000 UNIT/1 ML VIAL SUBCUT SCH ×3 (05:28→22:33)
[2021-01-05 05:40] LABS: Anisocytosis 1+; Eosinophils 1 % (0-10); Hypochromasia 1+; Lymphocytes 7 % (20-55); Macrocytosis 1+; Segmented Neutrophils 86 % (50-85); Total Cells Counted 100
[2021-01-05 05:41] LABS: Platelet Estimate Normal
[2021-01-05 06:03] LABS: Osmolality,Calculated 285.8 MOS/KG (273-304); Potassium 4.8 MMOL/L (3.5-5.1)
[2021-01-05] MEDS: INSULIN REGULAR 100 UNIT/ML SUBCUT SCH ×4 (08:12→21:42)
[2021-01-05] MEDS: METOPROLOL TARTRATE 50 MG TABLET PO SCH ×2 (09:06→21:41)
[2021-01-05] MEDS: PANTOPRAZOLE 40 MG TABLET PO SCH (09:06)
[2021-01-05] MEDS: CETIRIZINE 10 MG TABLET PO SCH (09:06)
[2021-01-05] MEDS: LEVOTHYROXINE 137 MCG TABLET PO SCH (09:07)
[2021-01-05] MEDS: MAGNESIUM CHLORIDE 64 MG TABLET PO SCH ×2 (09:07→21:42)
[2021-01-05] MEDS: DULoxetine 30 MG CAPSULE PO SCH (09:07)
[2021-01-05] MEDS: GABAPENTIN 300 MG CAPSULE PO SCH ×3 (09:07→21:42)
[2021-01-05] MEDS: PILOCARPINE 5 MG TABLET PO SCH ×3 (09:07→21:42)
[2021-01-05] MEDS: ESTRADIOL 1 MG TABLET PO SCH (09:07)
[2021-01-05] MEDS: azaTHIOprine 50 MG TABLET PO SCH ×2 (09:14→21:42)
[2021-01-05] MEDS: cefTRIAXone 1,000 MG in SODIUM CHLORIDE 0.9% 100 ML IV SCH (10:12)
[2021-01-05] MEDS: AZITHROMYCIN INJ 500 MG in SODIUM CHLORIDE 0.9% 250 ML IV SCH (11:00)
[2021-01-05 19:03] LABS: Bilirubin,Urine Negative (Negative); Blood, Urine Small mg/dL (Negative); Glucose,Urine (UA) 50 mg/dL (Negative); Ketones,Urine Negative (Negative); Nitrite,Urine Negative (Negative); Protein,Urine 30 MG/DL; Squamous Epithelial Cell,Urine Occasional /HPF (0-10); Urine Appearance Slightly Hazy (Clear); Urine Color Yellow (Yellow); Urine Specific Gravity 1.015 (1.001-1.035); Urine Urobilinogen < 2.0 EU/DL (0.2-1.0)
[2021-01-05] MEDS: MELATONIN 3 MG TABLET PO PRN (21:41)
[2021-01-05] MEDS: ATORVASTATIN 40 MG TABLET PO SCH (21:42)
[2021-01-05] MEDS ORDERED: LEVOFLOXACIN INJ 250 MG/50 ML PREMIX IV SCH (23:30)
[2021-01-06] MEDS: ALBUTEROL/IPRATROPIUM 3 ML NEB RESP TX SCH ×4 (00:55→18:37)
[2021-01-06 06:04] LABS: Calcium 7.1 MG/DL (8.5-10.1)
[2021-01-06] MEDS: HEPARIN 5,000 UNIT/1 ML VIAL SUBCUT SCH ×3 (06:04→21:56)
[2021-01-06 06:12] LABS: Potassium 6.1 MMOL/L (3.5-5.1)
[2021-01-06 06:29] LABS: Basophils # 0.1 10*3/uL (0.0-0.2); Basophils % 0.6 % (0.0-0.8); Eosinophils # 0.1 10*3/uL (0.0-0.87); Eosinophils % 0.3 % (0.00-10.9); Hemoglobin 14.1 GM/DL (12.0-16.0); Immature Granulocytes Absolute 0.31 #; Lymphocytes # 0.6 10*3/uL (1.4-4.0); Lymphocytes % 4.1 % (21.3-54.2); Mean Corpuscular Volume 109.3 FL (87-102); Mean Platelet Volume 10.3 FL (9.6-12.0); Monocytes % 4.9 % (1.7-12.7); NRBC # 0.04 10*3/uL; Neutrophils % 88.1 % (38.7-73.9); Platelet Count 215 T/CUMM (130-400); Red Cell Distribution Width 17.8 % (9.3-17.3); White Blood Count 15.4 T/CUMM (4-12)
[2021-01-06] MEDS ORDERED: SODIUM POLYSTYRENE SULFATE 15 GM/60 ML BOTTLE PO ONE (06:30)
[2021-01-06 06:36] LABS: Band Neutrophils 1 % (0-10); Lymphocytes 7 % (20-55); Nucleated Red Blood Cells 2 (0-5); Platelet Estimate Adequate; Segmented Neutrophils 81 % (50-85); Total Cells Counted 100
[2021-01-06] MEDS ORDERED: INSULIN REGULAR 10 UNIT, CALCIUM GLUCONATE 1,000 MG in DEXTROSE 10% 250 ML IV ONE (07:00)
[2021-01-06] MEDS: INSULIN REGULAR 100 UNIT/ML SUBCUT SCH ×4 (09:52→20:51)
[2021-01-06] MEDS: cefTRIAXone 1,000 MG in SODIUM CHLORIDE 0.9% 100 ML IV SCH (09:58)
[2021-01-06] MEDS ORDERED: methylPREDNISolone SOD SUC 125 MG/2 ML VIAL IV ONE (10:15)
[2021-01-06 10:21] LABS: ABG Base Excess -9.5 MMOL/L (-2.5-2.5); ABG HCO3 16.9 MMOL/L (20-26); ABG Oxygen Saturation 95.6 % (95-100); ABG TCO2 21.3 MMOL/L (23-27)
[2021-01-06] MEDS: SODIUM CHLORIDE 0.9% 1,000 ML IV SCH ×2 (10:39→19:03)
[2021-01-06] MEDS: AZITHROMYCIN INJ 500 MG in SODIUM CHLORIDE 0.9% 250 ML IV SCH (10:39)
[2021-01-06 10:43] LABS: ABG PCO2 76.2 MM HG (35-48); ABG PH 7.089 (7.35-7.45)
[2021-01-06] MEDS: DULoxetine 30 MG CAPSULE PO SCH (11:16)
[2021-01-06] MEDS: ESTRADIOL 1 MG TABLET PO SCH (11:17)
[2021-01-06] MEDS: azaTHIOprine 50 MG TABLET PO SCH ×2 (11:17→20:52)
[2021-01-06] MEDS: METOPROLOL TARTRATE 50 MG TABLET PO SCH ×2 (11:17→20:52)
[2021-01-06] MEDS: PILOCARPINE 5 MG TABLET PO SCH ×3 (11:18→20:52)
[2021-01-06] MEDS: GABAPENTIN 300 MG CAPSULE PO SCH ×3 (11:18→20:52)
[2021-01-06] MEDS: PANTOPRAZOLE 40 MG TABLET PO SCH (11:18)
[2021-01-06] MEDS: CETIRIZINE 10 MG TABLET PO SCH (11:19)
[2021-01-06] MEDS: LEVOTHYROXINE 137 MCG TABLET PO SCH (11:19)
[2021-01-06] MEDS: MAGNESIUM CHLORIDE 64 MG TABLET PO SCH ×2 (11:19→20:52)
[2021-01-06 12:27] LABS: Osmolality,Calculated 296.7 MOS/KG (273-304); Potassium 5.4 MMOL/L (3.5-5.1)
[2021-01-06 12:38] LABS: ABG Base Excess -9.9 MMOL/L (-2.5-2.5); ABG HCO3 16.7 MMOL/L (20-26); ABG PCO2 66.1 MM HG (35-48); ABG PO2 79.8 MM HG (80-95); ABG TCO2 19.6 MMOL/L (23-27)
[2021-01-06 14:51] LABS: ABG Base Excess -10.9 MMOL/L (-2.5-2.5); ABG Oxygen Saturation 98.2 % (95-100); ABG TCO2 20.5 MMOL/L (23-27)
[2021-01-06 14:54] LABS: ABG PCO2 76.3 MM HG (35-48); ABG PH 7.069 (7.35-7.45)
[2021-01-06] MEDS ORDERED: ETOMIDATE 20 MG/10 ML VIAL IV ONE ×2 (15:31→15:37)
[2021-01-06] MEDS ORDERED: ROCURONIUM 100 MG/10 ML VIAL IV ONE ×2 (15:31→15:37)
[2021-01-06 16:42] LABS: Bacteria,Urine Few /HPF (Few); Bilirubin,Urine Negative (Negative); Blood, Urine Small mg/dL (Negative); Glucose,Urine (UA) 50 mg/dL (Negative); Ketones,Urine Negative (Negative); Mucus,Urine Occasional /LPF (Occasional); Nitrite,Urine Negative (Negative); Protein,Urine 30 MG/DL; RBC,Urine 29 /HPF (0-4); Squamous Epithelial Cell,Urine Occasional /HPF (0-10); Urine Appearance CLOUDY (Clear); Urine Color Amber (Yellow); Urine Specific Gravity 1.013 (1.001-1.035); Urine Urobilinogen < 2.0 EU/DL (0.2-1.0)
[2021-01-06 16:55] LABS: ABG Base Excess -9.8 MMOL/L (-2.5-2.5); ABG HCO3 16.7 MMOL/L (20-26); ABG Oxygen Saturation 97.2 % (95-100); ABG PCO2 36.3 MM HG (35-48); ABG PH 7.267 (7.35-7.45); ABG PO2 82.9 MM HG (80-95); ABG TCO2 14.7 MMOL/L (23-27); Glucose Heart Surgery 254 MG/DL (74-106); Hematocrit Heart Surgery 41.7 PERCENT (37-47); Hemoglobin Heart Surgery 13.6 G/DL (12.0-16.0); Potassium Heart/CVR 5.8 MMOL/L (3.5-5.1)
[2021-01-06] MEDS ORDERED: SODIUM BICARBONATE 50 MEQ/50 ML VIAL IV ONE (17:33)
[2021-01-06] MEDS: methylPREDNISolone SOD SUC 40 MG/1 ML VIAL IV SCH (17:42)
[2021-01-06] MEDS: ATORVASTATIN 40 MG TABLET PO SCH (20:52)
[2021-01-07] MEDS: SODIUM CHLORIDE 0.9% 1,000 ML IV SCH ×4 (00:20→23:15)
[2021-01-07] MEDS: ALBUTEROL/IPRATROPIUM 3 ML NEB RESP TX SCH ×4 (01:17→19:50)
[2021-01-07] MEDS: methylPREDNISolone SOD SUC 40 MG/1 ML VIAL IV SCH ×3 (03:35→18:35)
[2021-01-07 03:55] LABS: ABG Base Excess -2.5 MMOL/L (-2.5-2.5); ABG HCO3 20.2 MMOL/L (20-26); ABG Oxygen Saturation 98.7 % (95-100); ABG PCO2 28.8 MM HG (35-48); ABG PH 7.464 (7.35-7.45); ABG PO2 162.2 MM HG (80-95); ABG TCO2 21.1 MMOL/L (23-27)
[2021-01-07 04:12] LABS: Basophils % 0.2 % (0.0-0.8); Hematocrit 38.1 VOL% (35.7-47.0); Immature Granulocytes % 1.6 %; Immature Granulocytes Absolute 0.19 #; Lymphocytes # 0.4 10*3/uL (1.4-4.0); Lymphocytes % 3.1 % (21.3-54.2); Mean Corpuscular HGB Conc 31.5 GM/DL (32-36); Mean Corpuscular Volume 102.4 FL (87-102); Mean Platelet Volume 10.1 FL (9.6-12.0); Monocytes % 5.2 % (1.7-12.7); NRBC # 0.02 10*3/uL; Neutrophils % 89.9 % (38.7-73.9); Platelet Count 211 T/CUMM (130-400); Red Blood Count 3.72 MC/CUMM (3.8-5.5); White Blood Count 11.6 T/CUMM (4-12)
[2021-01-07 04:19] LABS: Calcium 6.7 MG/DL (8.5-10.1); Osmolality,Calculated 306.1 MOS/KG (273-304); Potassium 3.9 MMOL/L (3.5-5.1)
[2021-01-07 04:31] LABS: Lymphocytes 1 % (20-55); Segmented Neutrophils 97 % (50-85); Total Cells Counted 100
[2021-01-07 04:34] LABS: Hypochromasia Slight; Microcytosis Slight; Platelet Estimate Adequate
[2021-01-07] MEDS: HEPARIN 5,000 UNIT/1 ML VIAL SUBCUT SCH ×3 (06:11→22:31)
[2021-01-07] MEDS ORDERED: INSULIN GLARGINE 100 UNIT/ML SUBCUT SCH (09:00)
[2021-01-07] MEDS: PANTOPRAZOLE 40 MG VIAL IV SCH (09:12)
[2021-01-07] MEDS: INSULIN REGULAR 100 UNIT/ML SUBCUT SCH ×4 (09:12→18:35)
[2021-01-07] MEDS: ESTRADIOL 1 MG TABLET PO SCH (09:13)
[2021-01-07] MEDS: GABAPENTIN 100 MG CAPSULE PO SCH ×2 (09:13→20:40)
[2021-01-07] MEDS: LEVOTHYROXINE 137 MCG TABLET PO SCH (09:13)
[2021-01-07] MEDS: azaTHIOprine 50 MG TABLET PO SCH ×2 (09:13→20:39)
[2021-01-07] MEDS: PILOCARPINE 5 MG TABLET PO SCH ×3 (09:13→20:40)
[2021-01-07] MEDS: CETIRIZINE 10 MG TABLET PO SCH (09:13)
[2021-01-07] MEDS: MAGNESIUM CHLORIDE 64 MG TABLET PO SCH ×2 (09:14→20:40)
[2021-01-07] MEDS: METOPROLOL TARTRATE 50 MG TABLET PO SCH ×2 (09:14→20:00)
[2021-01-07] MEDS ORDERED: DEXTROSE 50% 25 GM/50 ML VIAL IV PRN (10:27)
[2021-01-07] MEDS: cefTRIAXone 1,000 MG in SODIUM CHLORIDE 0.9% 100 ML IV SCH (12:07)
[2021-01-07] MEDS: AZITHROMYCIN INJ 500 MG in SODIUM CHLORIDE 0.9% 250 ML IV SCH (13:22)
[2021-01-07] MEDS ORDERED: CALCIUM GLUCONATE 1,000 MG in SODIUM CHLORIDE 0.9% 100 ML IV ONE (15:30)
[2021-01-07] MEDS: ATORVASTATIN 40 MG TABLET PO SCH (20:39)
[2021-01-08] MEDS: INSULIN REGULAR 100 UNIT/ML SUBCUT SCH ×4 (00:05→18:36)
[2021-01-08] MEDS: methylPREDNISolone SOD SUC 40 MG/1 ML VIAL IV SCH ×3 (02:38→18:36)
[2021-01-08 04:11] LABS: ABG HCO3 20.1 MMOL/L (20-26); ABG Oxygen Saturation 98.6 % (95-100); ABG PCO2 37.4 MM HG (35-48); ABG PH 7.348 (7.35-7.45); ABG PO2 170.6 MM HG (80-95); ABG TCO2 21.2 MMOL/L (23-27)
[2021-01-08 04:14] LABS: Basophils % 0.1 % (0.0-0.8); Hematocrit 36.5 VOL% (35.7-47.0); Hemoglobin 11.5 GM/DL (12.0-16.0); Immature Granulocytes % 0.7 %; Immature Granulocytes Absolute 0.08 #; Lymphocytes # 0.2 10*3/uL (1.4-4.0); Lymphocytes % 2.1 % (21.3-54.2); Mean Corpuscular HGB Conc 31.5 GM/DL (32-36); Mean Corpuscular Volume 102.8 FL (87-102); Mean Platelet Volume 9.8 FL (9.6-12.0); Monocytes % 4.7 % (1.7-12.7); NRBC # 0.02 10*3/uL; Neutrophils % 92.4 % (38.7-73.9); Platelet Count 192 T/CUMM (130-400); Red Blood Count 3.55 MC/CUMM (3.8-5.5); Red Cell Distribution Width 17.2 % (9.3-17.3); White Blood Count 11.2 T/CUMM (4-12)
[2021-01-08 04:30] LABS: Calcium 6.5 MG/DL (8.5-10.1); Osmolality,Calculated 318.6 MOS/KG (273-304); Potassium 4.2 MMOL/L (3.5-5.1)
[2021-01-08 04:39] LABS: Lymphocytes 1 % (20-55); Segmented Neutrophils 97 % (50-85); Total Cells Counted 100
[2021-01-08 04:40] LABS: Hypochromasia Slight; Microcytosis 1+
[2021-01-08] MEDS: HEPARIN 5,000 UNIT/1 ML VIAL SUBCUT SCH ×3 (05:55→22:36)
[2021-01-08] MEDS: SODIUM CHLORIDE 0.9% 1,000 ML IV SCH (06:51)
[2021-01-08] MEDS: ALBUTEROL/IPRATROPIUM 3 ML NEB RESP TX SCH ×4 (07:50→19:20)
[2021-01-08] MEDS ORDERED: FUROSEMIDE 40 MG/4 ML VIAL IV ONE (07:53)
[2021-01-08] MEDS: METOPROLOL TARTRATE 50 MG TABLET PO SCH ×2 (09:19→21:09)
[2021-01-08] MEDS: ESTRADIOL 1 MG TABLET PO SCH (09:20)
[2021-01-08] MEDS: PILOCARPINE 5 MG TABLET PO SCH ×3 (09:20→20:54)
[2021-01-08] MEDS: LEVOTHYROXINE 137 MCG TABLET PO SCH (09:20)
[2021-01-08] MEDS: MAGNESIUM CHLORIDE 64 MG TABLET PO SCH ×2 (09:20→20:54)
[2021-01-08] MEDS: GABAPENTIN 100 MG CAPSULE PO SCH ×2 (09:20→20:54)
[2021-01-08] MEDS: CETIRIZINE 10 MG TABLET PO SCH (09:20)
[2021-01-08] MEDS: INSULIN GLARGINE 100 UNIT/ML SUBCUT SCH (09:21)
[2021-01-08] MEDS: PANTOPRAZOLE 40 MG VIAL IV SCH (09:21)
[2021-01-08] MEDS: cefTRIAXone 1,000 MG in SODIUM CHLORIDE 0.9% 100 ML IV SCH (09:49)
[2021-01-08] MEDS: azaTHIOprine 50 MG TABLET PO SCH ×2 (09:49→20:54)
[2021-01-08] MEDS: AZITHROMYCIN INJ 500 MG in SODIUM CHLORIDE 0.9% 250 ML IV SCH (11:45)
[2021-01-08] MEDS ORDERED: CALCIUM GLUCONATE 1,000 MG in SODIUM CHLORIDE 0.9% 100 ML IV ONE (12:00)
[2021-01-08] MEDS: ATORVASTATIN 40 MG TABLET PO SCH (20:54)
[2021-01-09] MEDS: INSULIN REGULAR 100 UNIT/ML SUBCUT SCH ×4 (00:05→17:39)
[2021-01-09] MEDS: ALBUTEROL/IPRATROPIUM 3 ML NEB RESP TX SCH ×4 (00:41→18:02)
[2021-01-09] MEDS: methylPREDNISolone SOD SUC 40 MG/1 ML VIAL IV SCH ×3 (02:24→18:06)
[2021-01-09 04:46] LABS: ABG Base Excess -2.6 MMOL/L (-2.5-2.5); ABG HCO3 22.2 MMOL/L (20-26); ABG Oxygen Saturation 99.4 % (95-100)
[2021-01-09 04:49] LABS: Basophils % 0.1 % (0.0-0.8); Hemoglobin 12.3 GM/DL (12.0-16.0); Immature Granulocytes % 0.7 %; Immature Granulocytes Absolute 0.08 #; Lymphocytes # 0.3 10*3/uL (1.4-4.0); Lymphocytes % 2.7 % (21.3-54.2); Mean Corpuscular HGB Conc 30.8 GM/DL (32-36); Mean Corpuscular Volume 104.2 FL (87-102); Mean Platelet Volume 9.9 FL (9.6-12.0); Monocytes % 5.4 % (1.7-12.7); Neutrophils % 91.1 % (38.7-73.9); Platelet Count 187 T/CUMM (130-400); Red Blood Count 3.84 MC/CUMM (3.8-5.5); Red Cell Distribution Width 17.4 % (9.3-17.3); White Blood Count 10.7 T/CUMM (4-12)
[2021-01-09 05:06] LABS: Osmolality,Calculated 311.6 MOS/KG (273-304); Potassium 4.3 MMOL/L (3.5-5.1)
[2021-01-09 05:10] LABS: Hypochromasia Slight; Lymphocytes 2 % (20-55); Microcytosis Slight; Platelet Estimate Adequate; Segmented Neutrophils 89 % (50-85); Total Cells Counted 100
[2021-01-09] MEDS: HEPARIN 5,000 UNIT/1 ML VIAL SUBCUT SCH ×3 (05:45→23:20)
[2021-01-09] MEDS ORDERED: LEVOFLOXACIN 500 MG TABLET PER TUBE ONE (09:00)
[2021-01-09] MEDS: LEVOTHYROXINE 137 MCG TABLET PO SCH (09:39)
[2021-01-09] MEDS: METOPROLOL TARTRATE 50 MG TABLET PO SCH ×2 (09:39→20:01)
[2021-01-09] MEDS: ESTRADIOL 1 MG TABLET PO SCH (09:39)
[2021-01-09] MEDS: GABAPENTIN 100 MG CAPSULE PO SCH ×2 (09:40→20:01)
[2021-01-09] MEDS: CETIRIZINE 10 MG TABLET PO SCH (09:40)
[2021-01-09] MEDS: MAGNESIUM CHLORIDE 64 MG TABLET PO SCH ×2 (09:40→20:01)
[2021-01-09] MEDS: PANTOPRAZOLE 40 MG VIAL IV SCH (09:40)
[2021-01-09] MEDS: azaTHIOprine 50 MG TABLET PO SCH ×2 (09:40→20:01)
[2021-01-09] MEDS: PILOCARPINE 5 MG TABLET PO SCH ×3 (09:40→20:01)
[2021-01-09] MEDS: INSULIN GLARGINE 100 UNIT/ML SUBCUT SCH (09:50)
[2021-01-09] MEDS: FUROSEMIDE 40 MG/4 ML VIAL IV SCH (09:50)
[2021-01-09] MEDS: cefTRIAXone 1,000 MG in SODIUM CHLORIDE 0.9% 100 ML IV SCH (09:58)
[2021-01-09] MEDS: ATORVASTATIN 40 MG TABLET PO SCH (20:01)
[2021-01-10] MEDS: ALBUTEROL/IPRATROPIUM 3 ML NEB RESP TX SCH ×4 (00:15→19:40)
[2021-01-10] MEDS: INSULIN REGULAR 100 UNIT/ML SUBCUT SCH ×5 (00:55→23:32)
[2021-01-10] MEDS: methylPREDNISolone SOD SUC 40 MG/1 ML VIAL IV SCH ×3 (03:03→18:10)
[2021-01-10 04:58] LABS: ABG Base Excess -0.9 MMOL/L (-2.5-2.5); ABG HCO3 24.5 MMOL/L (20-26); ABG Oxygen Saturation 98.5 % (95-100); ABG PCO2 43.5 MM HG (35-48); ABG PH 7.368 (7.35-7.45); ABG PO2 157.8 MM HG (80-95); ABG TCO2 25.8 MMOL/L (23-27)
[2021-01-10 05:01] LABS: Basophils % 0.1 % (0.0-0.8); Hematocrit 37.8 VOL% (35.7-47.0); Hemoglobin 11.8 GM/DL (12.0-16.0); Immature Granulocytes % 0.8 %; Immature Granulocytes Absolute 0.11 #; Lymphocytes # 0.4 10*3/uL (1.4-4.0); Lymphocytes % 3.1 % (21.3-54.2); Mean Corpuscular HGB Conc 31.2 GM/DL (32-36); Mean Corpuscular Volume 104.4 FL (87-102); Mean Platelet Volume 10.2 FL (9.6-12.0); Monocytes % 5.3 % (1.7-12.7); Neutrophils % 90.7 % (38.7-73.9); Platelet Count 170 T/CUMM (130-400); Red Blood Count 3.62 MC/CUMM (3.8-5.5); Red Cell Distribution Width 17.1 % (9.3-17.3); White Blood Count 13.4 T/CUMM (4-12)
[2021-01-10 05:24] LABS: Osmolality,Calculated 316.3 MOS/KG (273-304); Potassium 4.6 MMOL/L (3.5-5.1)
[2021-01-10 05:26] LABS: Lymphocytes 6 % (20-55); Platelet Estimate Normal; Segmented Neutrophils 91 % (50-85); Total Cells Counted 100
[2021-01-10] MEDS: HEPARIN 5,000 UNIT/1 ML VIAL SUBCUT SCH ×3 (05:45→22:50)
[2021-01-10] MEDS: azaTHIOprine 50 MG TABLET PO SCH ×2 (08:43→21:37)
[2021-01-10] MEDS: METOPROLOL TARTRATE 50 MG TABLET PO SCH ×2 (08:43→21:38)
[2021-01-10] MEDS: MAGNESIUM CHLORIDE 64 MG TABLET PO SCH ×2 (08:43→21:38)
[2021-01-10] MEDS: ACETAMINOPHEN 325 MG TABLET PO PRN (08:44)
[2021-01-10] MEDS: CETIRIZINE 10 MG TABLET PO SCH (08:44)
[2021-01-10] MEDS: GABAPENTIN 100 MG CAPSULE PO SCH ×2 (08:44→21:38)
[2021-01-10] MEDS: PILOCARPINE 5 MG TABLET PO SCH ×3 (08:44→21:38)
[2021-01-10] MEDS: LEVOTHYROXINE 137 MCG TABLET PO SCH (08:44)
[2021-01-10] MEDS: ESTRADIOL 1 MG TABLET PO SCH (08:44)
[2021-01-10] MEDS: PANTOPRAZOLE 40 MG VIAL IV SCH (08:45)
[2021-01-10] MEDS: FUROSEMIDE 40 MG/4 ML VIAL IV SCH (08:46)
[2021-01-10] MEDS: INSULIN GLARGINE 100 UNIT/ML SUBCUT SCH (08:46)
[2021-01-10] MEDS: cefTRIAXone 1,000 MG in SODIUM CHLORIDE 0.9% 100 ML IV SCH (09:44)
[2021-01-10] MEDS: LEVOFLOXACIN 250 MG TABLET PER TUBE SCH (09:49)
[2021-01-10] MEDS: ATORVASTATIN 40 MG TABLET PO SCH (21:38)
[2021-01-11] MEDS: ALBUTEROL/IPRATROPIUM 3 ML NEB RESP TX SCH ×5 (01:15→23:50)
[2021-01-11] MEDS: methylPREDNISolone SOD SUC 40 MG/1 ML VIAL IV SCH ×3 (03:09→18:40)
[2021-01-11 04:40] LABS: Basophils % 0.1 % (0.0-0.8); Eosinophils % 0.2 % (0.00-10.9); Hematocrit 40.1 VOL% (35.7-47.0); Hemoglobin 12.4 GM/DL (12.0-16.0); Immature Granulocytes % 0.7 %; Immature Granulocytes Absolute 0.11 #; Lymphocytes # 0.5 10*3/uL (1.4-4.0); Lymphocytes % 2.8 % (21.3-54.2); Mean Corpuscular HGB Conc 30.9 GM/DL (32-36); Mean Corpuscular Volume 104.7 FL (87-102); Mean Platelet Volume 10.6 FL (9.6-12.0); Monocytes % 4.4 % (1.7-12.7); Neutrophils % 91.8 % (38.7-73.9); Platelet Count 152 T/CUMM (130-400); Red Blood Count 3.83 MC/CUMM (3.8-5.5); Red Cell Distribution Width 16.9 % (9.3-17.3); White Blood Count 16.3 T/CUMM (4-12)
[2021-01-11 04:53] LABS: ABG Base Excess 1.3 MMOL/L (-2.5-2.5); ABG HCO3 25.6 MMOL/L (20-26); ABG Oxygen Saturation 98.4 % (95-100); ABG PCO2 59.8 MM HG (35-48); ABG TCO2 26.1 MMOL/L (23-27)
[2021-01-11 05:10] LABS: Eosinophils 1 % (0-10); Lymphocytes 4 % (20-55); Segmented Neutrophils 88 % (50-85); Total Cells Counted 100
[2021-01-11 05:11] LABS: Anisocytosis 1+; Hypochromasia 1+; Microcytosis 1+; Ovalocytes Slight
[2021-01-11 05:12] LABS: Platelet Estimate Adequate
[2021-01-11 05:15] LABS: Osmolality,Calculated 303.8 MOS/KG (273-304); Potassium 4.7 MMOL/L (3.5-5.1)
[2021-01-11] MEDS: INSULIN REGULAR 100 UNIT/ML SUBCUT SCH ×3 (05:15→18:39)
[2021-01-11] MEDS: HEPARIN 5,000 UNIT/1 ML VIAL SUBCUT SCH ×3 (05:40→21:35)
[2021-01-11] MEDS: ESTRADIOL 1 MG TABLET PO SCH (10:09)
[2021-01-11] MEDS: PILOCARPINE 5 MG TABLET PO SCH ×3 (10:10→21:27)
[2021-01-11] MEDS: INSULIN GLARGINE 100 UNIT/ML SUBCUT SCH (10:10)
[2021-01-11] MEDS: LEVOTHYROXINE 137 MCG TABLET PO SCH (10:10)
[2021-01-11] MEDS: METOPROLOL TARTRATE 50 MG TABLET PO SCH ×2 (10:10→21:27)
[2021-01-11] MEDS: LEVOFLOXACIN 250 MG TABLET PER TUBE SCH (10:10)
[2021-01-11] MEDS: GABAPENTIN 100 MG CAPSULE PO SCH ×2 (10:10→21:27)
[2021-01-11] MEDS: azaTHIOprine 50 MG TABLET PO SCH ×2 (10:10→21:25)
[2021-01-11] MEDS: CETIRIZINE 10 MG TABLET PO SCH (10:10)
[2021-01-11] MEDS: FUROSEMIDE 40 MG/4 ML VIAL IV SCH (10:10)
[2021-01-11] MEDS: PANTOPRAZOLE 40 MG VIAL IV SCH (10:15)
[2021-01-11] MEDS: cefTRIAXone 1,000 MG in SODIUM CHLORIDE 0.9% 100 ML IV SCH (10:18)
[2021-01-11] MEDS: MAGNESIUM CHLORIDE 64 MG TABLET PO SCH ×2 (10:18→21:32)
[2021-01-11] MEDS: ATORVASTATIN 40 MG TABLET PO SCH (21:26)
[2021-01-12] MEDS: INSULIN REGULAR 100 UNIT/ML SUBCUT SCH ×5 (00:26→23:27)
[2021-01-12] MEDS: methylPREDNISolone SOD SUC 40 MG/1 ML VIAL IV SCH ×3 (03:08→17:42)
[2021-01-12 04:14] LABS: ABG Base Excess 4.2 MMOL/L (-2.5-2.5); ABG HCO3 28.2 MMOL/L (20-26); ABG Oxygen Saturation 96.4 % (95-100); ABG PCO2 53.3 MM HG (35-48); ABG PH 7.371 (7.35-7.45); ABG PO2 84.5 MM HG (80-95); ABG TCO2 27.2 MMOL/L (23-27)
[2021-01-12] MEDS: HEPARIN 5,000 UNIT/1 ML VIAL SUBCUT SCH ×2 (05:51→17:42)
[2021-01-12 06:48] LABS: Basophils % 0.2 % (0.0-0.8); Eosinophils % 0.1 % (0.00-10.9); Hematocrit 45.4 VOL% (35.7-47.0); Hemoglobin 13.6 GM/DL (12.0-16.0); Immature Granulocytes % 0.6 %; Immature Granulocytes Absolute 0.09 #; Lymphocytes # 0.4 10*3/uL (1.4-4.0); Mean Corpuscular Volume 107.1 FL (87-102); Mean Platelet Volume 11.3 FL (9.6-12.0); Monocytes % 3.7 % (1.7-12.7); Neutrophils % 92.4 % (38.7-73.9); Platelet Count 103 T/CUMM (130-400); Red Blood Count 4.24 MC/CUMM (3.8-5.5); Red Cell Distribution Width 16.1 % (9.3-17.3); White Blood Count 14.6 T/CUMM (4-12)
[2021-01-12 06:58] LABS: Hypochromasia 1+; Lymphocytes 2 % (20-55); Segmented Neutrophils 89 % (50-85); Total Cells Counted 100
[2021-01-12 06:59] LABS: Anisocytosis 1+; Microcytosis 1+; Ovalocytes Slight; Platelet Estimate Decreased
[2021-01-12] MEDS: ALBUTEROL/IPRATROPIUM 3 ML NEB RESP TX SCH ×3 (07:00→19:56)
[2021-01-12 07:08] LABS: Calcium 7.2 MG/DL (8.5-10.1); Osmolality,Calculated 293.5 MOS/KG (273-304)
[2021-01-12] MEDS: ONDANSETRON 4 MG/2 ML VIAL IV PRN ×2 (08:03→22:27)
[2021-01-12] MEDS: PILOCARPINE 5 MG TABLET PO SCH ×3 (09:19→20:33)
[2021-01-12] MEDS: LEVOTHYROXINE 137 MCG TABLET PO SCH (09:20)
[2021-01-12] MEDS: CETIRIZINE 10 MG TABLET PO SCH (09:20)
[2021-01-12] MEDS: GABAPENTIN 100 MG CAPSULE PO SCH ×2 (09:20→20:34)
[2021-01-12] MEDS: azaTHIOprine 50 MG TABLET PO SCH ×2 (09:20→20:34)
[2021-01-12] MEDS: DULoxetine 30 MG CAPSULE PO SCH (09:20)
[2021-01-12] MEDS: MAGNESIUM CHLORIDE 64 MG TABLET PO SCH ×2 (09:20→20:35)
[2021-01-12] MEDS: ESTRADIOL 1 MG TABLET PO SCH (09:20)
[2021-01-12] MEDS: FUROSEMIDE 40 MG/4 ML VIAL IV SCH (09:21)
[2021-01-12] MEDS: INSULIN GLARGINE 100 UNIT/ML SUBCUT SCH (09:22)
[2021-01-12] MEDS: METOPROLOL TARTRATE 50 MG TABLET PO SCH ×2 (09:26→20:34)
[2021-01-12] MEDS: cefTRIAXone 1,000 MG in SODIUM CHLORIDE 0.9% 100 ML IV SCH (09:30)
[2021-01-12] MEDS: ACETAMINOPHEN 325 MG TABLET PO PRN (09:33)
[2021-01-12] MEDS: LEVOFLOXACIN 250 MG TABLET PO SCH ×2 (09:53→15:02)
[2021-01-12] MEDS: ATORVASTATIN 40 MG TABLET PO SCH (20:33)
[2021-01-13] MEDS: ALBUTEROL/IPRATROPIUM 3 ML NEB RESP TX SCH ×4 (00:47→19:14)
[2021-01-13] MEDS: methylPREDNISolone SOD SUC 40 MG/1 ML VIAL IV SCH ×3 (01:30→21:33)
[2021-01-13] MEDS: HEPARIN 5,000 UNIT/1 ML VIAL SUBCUT SCH ×3 (01:31→18:00)
[2021-01-13 04:25] LABS: Allen Test Positive
[2021-01-13 04:26] LABS: ABG Base Excess 4.9 MMOL/L (-2.5-2.5); ABG HCO3 33.4 MMOL/L (20-26); ABG Oxygen Saturation 98.3 % (95-100); ABG PCO2 68.9 MM HG (35-48); ABG PH 7.303 (7.35-7.45); ABG PO2 132.2 MM HG (80-95); ABG TCO2 35.5 MMOL/L (23-27)
[2021-01-13] MEDS: INSULIN REGULAR 100 UNIT/ML SUBCUT SCH ×3 (05:21→18:00)
[2021-01-13 07:05] LABS: Basophils % 0.1 % (0.0-0.8); Eosinophils % 0.1 % (0.00-10.9); Hematocrit 44.1 VOL% (35.7-47.0); Hemoglobin 13.6 GM/DL (12.0-16.0); Immature Granulocytes % 0.9 %; Lymphocytes # 0.4 10*3/uL (1.4-4.0); Lymphocytes % 3.3 % (21.3-54.2); Mean Corpuscular HGB Conc 30.8 GM/DL (32-36); Mean Corpuscular Volume 104.3 FL (87-102); Mean Platelet Volume 11.5 FL (9.6-12.0); Monocytes % 3.8 % (1.7-12.7); Neutrophils % 91.8 % (38.7-73.9); Platelet Count 140 T/CUMM (130-400); Red Blood Count 4.23 MC/CUMM (3.8-5.5); Red Cell Distribution Width 15.7 % (9.3-17.3); White Blood Count 11.5 T/CUMM (4-12)
[2021-01-13 07:24] LABS: Calcium 7.2 MG/DL (8.5-10.1); Osmolality,Calculated 280.2 MOS/KG (273-304); Potassium 5.3 MMOL/L (3.5-5.1)
[2021-01-13 07:28] LABS: Hypochromasia Slight; Lymphocytes 3 % (20-55); Microcytosis Slight; Platelet Estimate Adequate; Segmented Neutrophils 91 % (50-85); Total Cells Counted 100
[2021-01-13] MEDS ORDERED: SODIUM POLYSTYRENE SULFATE 15 GM/60 ML BOTTLE PO STA (08:03)
[2021-01-13] MEDS: CETIRIZINE 10 MG TABLET PO SCH (09:07)
[2021-01-13] MEDS: ESTRADIOL 1 MG TABLET PO SCH (09:07)
[2021-01-13] MEDS: MAGNESIUM CHLORIDE 64 MG TABLET PO SCH ×2 (09:07→21:32)
[2021-01-13] MEDS: GABAPENTIN 100 MG CAPSULE PO SCH ×2 (09:07→21:32)
[2021-01-13] MEDS: DULoxetine 30 MG CAPSULE PO SCH (09:07)
[2021-01-13] MEDS: METOPROLOL TARTRATE 50 MG TABLET PO SCH ×2 (09:08→21:32)
[2021-01-13] MEDS: LEVOTHYROXINE 137 MCG TABLET PO SCH (09:08)
[2021-01-13] MEDS: LEVOFLOXACIN 250 MG TABLET PO SCH (09:08)
[2021-01-13] MEDS: PILOCARPINE 5 MG TABLET PO SCH ×3 (09:09→21:32)
[2021-01-13] MEDS: azaTHIOprine 50 MG TABLET PO SCH ×2 (09:09→21:32)
[2021-01-13] MEDS: INSULIN GLARGINE 100 UNIT/ML SUBCUT SCH (09:11)
[2021-01-13] MEDS: cefTRIAXone 1,000 MG in SODIUM CHLORIDE 0.9% 100 ML IV SCH (10:30)
[2021-01-13] MEDS: ONDANSETRON 4 MG/2 ML VIAL IV PRN (10:37)
[2021-01-13] MEDS: ATORVASTATIN 40 MG TABLET PO SCH (21:32)
[2021-01-14] MEDS: ALBUTEROL/IPRATROPIUM 3 ML NEB RESP TX SCH ×4 (00:28→19:46)
[2021-01-14] MEDS: INSULIN REGULAR 100 UNIT/ML SUBCUT SCH ×4 (01:06→17:28)
[2021-01-14] MEDS: HEPARIN 5,000 UNIT/1 ML VIAL SUBCUT SCH ×3 (01:13→16:47)
[2021-01-14 03:56] LABS: ABG Base Excess 2.5 MMOL/L (-2.5-2.5); ABG HCO3 26.6 MMOL/L (20-26); ABG Oxygen Saturation 95.1 % (95-100); ABG PH 7.251 (7.35-7.45); ABG PO2 80.7 MM HG (80-95); ABG TCO2 29.2 MMOL/L (23-27); Allen Test Positive
[2021-01-14 04:07] LABS: ABG PCO2 74.3 MM HG (35-48)
[2021-01-14 04:30] LABS: Basophils % 0.1 % (0.0-0.8); Eosinophils % 0.3 % (0.00-10.9); Hematocrit 41.4 VOL% (35.7-47.0); Hemoglobin 12.7 GM/DL (12.0-16.0); Immature Granulocytes % 0.9 %; Lymphocytes # 0.4 10*3/uL (1.4-4.0); Lymphocytes % 3.4 % (21.3-54.2); Mean Corpuscular HGB Conc 30.7 GM/DL (32-36); Mean Corpuscular Volume 104.5 FL (87-102); Mean Platelet Volume 11.1 FL (9.6-12.0); Monocytes % 4.9 % (1.7-12.7); Neutrophils % 90.4 % (38.7-73.9); Platelet Count 161 T/CUMM (130-400); Red Blood Count 3.96 MC/CUMM (3.8-5.5); Red Cell Distribution Width 15.4 % (9.3-17.3); White Blood Count 11.1 T/CUMM (4-12)
[2021-01-14 04:54] LABS: Band Neutrophils 1 % (0-10); Hypochromasia 1+; Lymphocytes 4 % (20-55); Microcytosis 1+; Platelet Estimate Adequate; Segmented Neutrophils 90 % (50-85); Total Cells Counted 100
[2021-01-14 05:01] LABS: Calcium 6.9 MG/DL (8.5-10.1); Osmolality,Calculated 287.1 MOS/KG (273-304); Potassium 4.8 MMOL/L (3.5-5.1)
[2021-01-14] MEDS: cefTRIAXone 1,000 MG in SODIUM CHLORIDE 0.9% 100 ML IV SCH (10:09)
[2021-01-14] MEDS: methylPREDNISolone SOD SUC 40 MG/1 ML VIAL IV SCH ×2 (10:10→21:09)
[2021-01-14] MEDS: METOPROLOL TARTRATE 50 MG TABLET PO SCH ×2 (10:10→21:09)
[2021-01-14] MEDS: azaTHIOprine 50 MG TABLET PO SCH ×2 (10:10→21:09)
[2021-01-14] MEDS: INSULIN GLARGINE 100 UNIT/ML SUBCUT SCH (10:10)
[2021-01-14] MEDS: PILOCARPINE 5 MG TABLET PO SCH ×3 (10:11→21:11)
[2021-01-14] MEDS: GABAPENTIN 100 MG CAPSULE PO SCH ×2 (10:11→21:09)
[2021-01-14] MEDS: ESTRADIOL 1 MG TABLET PO SCH (10:11)
[2021-01-14] MEDS: DULoxetine 30 MG CAPSULE PO SCH (10:11)
[2021-01-14] MEDS: CETIRIZINE 10 MG TABLET PO SCH (10:11)
[2021-01-14] MEDS: MAGNESIUM CHLORIDE 64 MG TABLET PO SCH ×2 (10:11→21:09)
[2021-01-14] MEDS: LEVOTHYROXINE 137 MCG TABLET PO SCH (10:12)
[2021-01-14] MEDS: LEVOFLOXACIN 250 MG TABLET PO SCH (10:12)
[2021-01-14] MEDS ORDERED: BISACODYL 10 MG SUPP RECTAL ONE (12:00)
[2021-01-14 15:48] LABS: ABG HCO3 27.9 MMOL/L (20-26); ABG Oxygen Saturation 95.4 % (95-100); ABG PCO2 60.8 MM HG (35-48); ABG PH 7.327 (7.35-7.45); ABG PO2 77.4 MM HG (80-95); ABG TCO2 28.3 MMOL/L (23-27)
[2021-01-14] MEDS: ATORVASTATIN 40 MG TABLET PO SCH (21:09)
[2021-01-14] MEDS: BUDESONIDE/FORMOTEROL 160-4.5 INHALER 6 GM INH SCH (21:10)
[2021-01-15] MEDS: INSULIN REGULAR 100 UNIT/ML SUBCUT SCH ×4 (00:20→17:55)
[2021-01-15] MEDS: ALBUTEROL/IPRATROPIUM 3 ML NEB RESP TX SCH ×4 (01:12→19:21)
[2021-01-15] MEDS: HEPARIN 5,000 UNIT/1 ML VIAL SUBCUT SCH ×3 (01:20→17:54)
[2021-01-15 04:18] LABS: ABG Base Excess 3.8 MMOL/L (-2.5-2.5); ABG HCO3 27.8 MMOL/L (20-26); ABG Oxygen Saturation 97.1 % (95-100); ABG PCO2 53.8 MM HG (35-48); ABG PH 7.364 (7.35-7.45); ABG PO2 89.5 MM HG (80-95); ABG TCO2 26.9 MMOL/L (23-27)
[2021-01-15 05:18] LABS: Basophils % 0.1 % (0.0-0.8); Hematocrit 42.4 VOL% (35.7-47.0); Hemoglobin 13.3 GM/DL (12.0-16.0); Immature Granulocytes % 0.5 %; Immature Granulocytes Absolute 0.04 #; Lymphocytes # 0.5 10*3/uL (1.4-4.0); Lymphocytes % 5.9 % (21.3-54.2); Mean Corpuscular HGB Conc 31.4 GM/DL (32-36); Mean Corpuscular Volume 103.7 FL (87-102); Mean Platelet Volume 11.3 FL (9.6-12.0); Monocytes % 3.9 % (1.7-12.7); Neutrophils % 89.6 % (38.7-73.9); Platelet Count 164 T/CUMM (130-400); Red Blood Count 4.09 MC/CUMM (3.8-5.5); Red Cell Distribution Width 15.2 % (9.3-17.3); White Blood Count 8.5 T/CUMM (4-12)
[2021-01-15 05:54] LABS: Calcium 7.1 MG/DL (8.5-10.1); Osmolality,Calculated 284.4 MOS/KG (273-304)
[2021-01-15] MEDS: BUDESONIDE/FORMOTEROL 160-4.5 INHALER 6 GM INH SCH ×2 (08:55→21:30)
[2021-01-15] MEDS: cefTRIAXone 1,000 MG in SODIUM CHLORIDE 0.9% 100 ML IV SCH (09:22)
[2021-01-15] MEDS: methylPREDNISolone SOD SUC 40 MG/1 ML VIAL IV SCH (09:22)
[2021-01-15] MEDS: LEVOTHYROXINE 137 MCG TABLET PO SCH (09:23)
[2021-01-15] MEDS: CETIRIZINE 10 MG TABLET PO SCH (09:23)
[2021-01-15] MEDS: THEOPHYLLINE ER (24 HR) 400 MG CAPSULE PO SCH (09:23)
[2021-01-15] MEDS: FUROSEMIDE 20 MG TABLET PO SCH (09:23)
[2021-01-15] MEDS: DULoxetine 30 MG CAPSULE PO SCH (09:23)
[2021-01-15] MEDS: GABAPENTIN 100 MG CAPSULE PO SCH ×2 (09:24→21:27)
[2021-01-15] MEDS: ESTRADIOL 1 MG TABLET PO SCH (09:24)
[2021-01-15] MEDS: PILOCARPINE 5 MG TABLET PO SCH ×3 (09:24→21:26)
[2021-01-15] MEDS: MAGNESIUM CHLORIDE 64 MG TABLET PO SCH ×2 (09:24→21:27)
[2021-01-15] MEDS: INSULIN GLARGINE 100 UNIT/ML SUBCUT SCH (09:25)
[2021-01-15] MEDS: azaTHIOprine 50 MG TABLET PO SCH ×2 (09:25→21:27)
[2021-01-15] MEDS: LEVOFLOXACIN 250 MG TABLET PO SCH (09:26)
[2021-01-15] MEDS ORDERED: FLUCONAZOLE 100 MG TABLET PO ONE (11:00)
[2021-01-15] MEDS ORDERED: NYSTATIN 500,000 UNIT/5 ML UDCUP SWISH/SWAL SCH (13:00)
[2021-01-15] MEDS: MELATONIN 3 MG TABLET PO PRN (21:27)
[2021-01-15] MEDS: ATORVASTATIN 40 MG TABLET PO SCH (21:28)
[2021-01-15] MEDS: ONDANSETRON 4 MG/2 ML VIAL IV PRN (23:03)
[2021-01-16] MEDS: ALBUTEROL/IPRATROPIUM 3 ML NEB RESP TX SCH ×4 (00:45→19:49)
[2021-01-16] MEDS: HEPARIN 5,000 UNIT/1 ML VIAL SUBCUT SCH ×3 (01:50→18:01)
[2021-01-16] MEDS: INSULIN REGULAR 100 UNIT/ML SUBCUT SCH ×4 (02:26→18:00)
[2021-01-16 04:37] LABS: ABG Base Excess 2.8 MMOL/L (-2.5-2.5); ABG HCO3 26.9 MMOL/L (20-26); ABG Oxygen Saturation 98.3 % (95-100); ABG PCO2 50.8 MM HG (35-48); ABG PH 7.367 (7.35-7.45); ABG TCO2 25.9 MMOL/L (23-27)
[2021-01-16 05:51] LABS: Basophils % 0.1 % (0.0-0.8); Eosinophils # 0.1 10*3/uL (0.0-0.87); Eosinophils % 1.2 % (0.00-10.9); Hematocrit 38.3 VOL% (35.7-47.0); Hemoglobin 11.9 GM/DL (12.0-16.0); Immature Granulocytes % 0.9 %; Lymphocytes # 1.2 10*3/uL (1.4-4.0); Lymphocytes % 11.4 % (21.3-54.2); Mean Corpuscular HGB Conc 31.1 GM/DL (32-36); Mean Corpuscular Volume 102.4 FL (87-102); Mean Platelet Volume 10.9 FL (9.6-12.0); Monocytes % 9.3 % (1.7-12.7); Neutrophils % 77.1 % (38.7-73.9); Platelet Count 199 T/CUMM (130-400); Red Blood Count 3.74 MC/CUMM (3.8-5.5); Red Cell Distribution Width 15.2 % (9.3-17.3); White Blood Count 10.8 T/CUMM (4-12)
[2021-01-16 06:08] LABS: Calcium 7.1 MG/DL (8.5-10.1); Osmolality,Calculated 291.5 MOS/KG (273-304); Potassium 4.1 MMOL/L (3.5-5.1)
[2021-01-16] MEDS: DULoxetine 30 MG CAPSULE PO SCH (09:13)
[2021-01-16] MEDS: GABAPENTIN 100 MG CAPSULE PO SCH ×2 (09:13→22:18)
[2021-01-16] MEDS: LEVOFLOXACIN 250 MG TABLET PO SCH (09:13)
[2021-01-16] MEDS: CETIRIZINE 10 MG TABLET PO SCH (09:13)
[2021-01-16] MEDS: FUROSEMIDE 20 MG TABLET PO SCH (09:13)
[2021-01-16] MEDS: BUDESONIDE/FORMOTEROL 160-4.5 INHALER 6 GM INH SCH ×2 (09:14→22:22)
[2021-01-16] MEDS: THEOPHYLLINE ER (24 HR) 400 MG CAPSULE PO SCH (09:14)
[2021-01-16] MEDS: PILOCARPINE 5 MG TABLET PO SCH ×3 (09:14→22:21)
[2021-01-16] MEDS: azaTHIOprine 50 MG TABLET PO SCH ×2 (09:14→22:20)
[2021-01-16] MEDS: LEVOTHYROXINE 137 MCG TABLET PO SCH (09:14)
[2021-01-16] MEDS: ESTRADIOL 1 MG TABLET PO SCH (09:14)
[2021-01-16] MEDS: MAGNESIUM CHLORIDE 64 MG TABLET PO SCH ×2 (09:14→22:22)
[2021-01-16] MEDS: NYSTATIN 500,000 UNIT/5 ML UDCUP SWISH/SWAL SCH ×4 (10:31→22:21)
[2021-01-16] MEDS: methylPREDNISolone SOD SUC 40 MG/1 ML VIAL IV SCH (10:31)
[2021-01-16] MEDS: cefTRIAXone 1,000 MG in SODIUM CHLORIDE 0.9% 100 ML IV SCH (10:32)
[2021-01-16] MEDS: METOPROLOL TARTRATE 50 MG TABLET PO SCH ×2 (10:32→22:17)
[2021-01-16] MEDS: INSULIN GLARGINE 100 UNIT/ML SUBCUT SCH (10:33)
[2021-01-16] MEDS: MELATONIN 3 MG TABLET PO PRN (22:20)
[2021-01-16] MEDS: ATORVASTATIN 40 MG TABLET PO SCH (22:21)
[2021-01-17] MEDS: ALBUTEROL/IPRATROPIUM 3 ML NEB RESP TX SCH ×4 (01:40→19:40)
[2021-01-17] MEDS: INSULIN REGULAR 100 UNIT/ML SUBCUT SCH ×4 (02:36→18:01)
[2021-01-17] MEDS: HEPARIN 5,000 UNIT/1 ML VIAL SUBCUT SCH ×3 (02:37→18:01)
[2021-01-17 04:15] LABS: ABG Base Excess 3.9 MMOL/L (-2.5-2.5); ABG HCO3 30.3 MMOL/L (20-26); ABG Oxygen Saturation 97.9 % (95-100); ABG PCO2 53.9 MM HG (35-48); ABG PH 7.368 (7.35-7.45); ABG PO2 109.4 MM HG (80-95); Allen Test Positive; Pt O2 Delivery Device BIPAP
[2021-01-17 05:30] LABS: Basophils % 0.2 % (0.0-0.8); Eosinophils # 0.1 10*3/uL (0.0-0.87); Eosinophils % 0.8 % (0.00-10.9); Hematocrit 38.8 VOL% (35.7-47.0); Hemoglobin 12.3 GM/DL (12.0-16.0); Immature Granulocytes % 1.1 %; Immature Granulocytes Absolute 0.13 #; Lymphocytes # 1.1 10*3/uL (1.4-4.0); Lymphocytes % 8.8 % (21.3-54.2); Mean Corpuscular HGB Conc 31.7 GM/DL (32-36); Mean Corpuscular Volume 102.9 FL (87-102); Mean Platelet Volume 10.9 FL (9.6-12.0); Monocytes % 6.8 % (1.7-12.7); Neutrophils % 82.3 % (38.7-73.9); Platelet Count 204 T/CUMM (130-400); Red Blood Count 3.77 MC/CUMM (3.8-5.5); White Blood Count 12.2 T/CUMM (4-12)
[2021-01-17 05:42] LABS: Calcium 7.1 MG/DL (8.5-10.1); Osmolality,Calculated 278.2 MOS/KG (273-304); Potassium 4.3 MMOL/L (3.5-5.1)
[2021-01-17] MEDS: cefTRIAXone 1,000 MG in SODIUM CHLORIDE 0.9% 100 ML IV SCH (09:54)
[2021-01-17] MEDS: methylPREDNISolone SOD SUC 40 MG/1 ML VIAL IV SCH (09:55)
[2021-01-17] MEDS: THEOPHYLLINE ER (24 HR) 400 MG CAPSULE PO SCH (09:56)
[2021-01-17] MEDS: GABAPENTIN 100 MG CAPSULE PO SCH ×2 (09:56→22:29)
[2021-01-17] MEDS: MAGNESIUM CHLORIDE 64 MG TABLET PO SCH ×2 (09:56→22:29)
[2021-01-17] MEDS: ESTRADIOL 1 MG TABLET PO SCH (09:56)
[2021-01-17] MEDS: METOPROLOL TARTRATE 50 MG TABLET PO SCH ×2 (09:56→22:30)
[2021-01-17] MEDS: LEVOTHYROXINE 137 MCG TABLET PO SCH (09:56)
[2021-01-17] MEDS: NYSTATIN 500,000 UNIT/5 ML UDCUP SWISH/SWAL SCH ×4 (09:56→22:30)
[2021-01-17] MEDS: CETIRIZINE 10 MG TABLET PO SCH (09:57)
[2021-01-17] MEDS: azaTHIOprine 50 MG TABLET PO SCH ×2 (09:57→22:29)
[2021-01-17] MEDS: FUROSEMIDE 20 MG TABLET PO SCH (09:57)
[2021-01-17] MEDS: LEVOFLOXACIN 250 MG TABLET PO SCH (09:57)
[2021-01-17] MEDS: DULoxetine 30 MG CAPSULE PO SCH (09:57)
[2021-01-17] MEDS: POLYETHYLENE GLYCOL POWDER 17 GM PACK PO SCH (10:31)
[2021-01-17] MEDS: BUDESONIDE/FORMOTEROL 160-4.5 INHALER 6 GM INH SCH ×2 (10:32→22:30)
[2021-01-17] MEDS: PILOCARPINE 5 MG TABLET PO SCH ×3 (11:03→22:44)
[2021-01-17] MEDS: INSULIN GLARGINE 100 UNIT/ML SUBCUT SCH (12:01)
[2021-01-17] MEDS: ACETAMINOPHEN 325 MG TABLET PO PRN (14:44)
[2021-01-17] MEDS: ATORVASTATIN 40 MG TABLET PO SCH (22:30)
[2021-01-17] MEDS: ONDANSETRON 4 MG/2 ML VIAL IV PRN (22:36)
[2021-01-18] MEDS: ALBUTEROL/IPRATROPIUM 3 ML NEB RESP TX SCH ×2 (00:06→07:44)
[2021-01-18] MEDS: INSULIN REGULAR 100 UNIT/ML SUBCUT SCH ×2 (00:48→06:33)
[2021-01-18] MEDS: HEPARIN 5,000 UNIT/1 ML VIAL SUBCUT SCH ×2 (00:52→09:10)
[2021-01-18 04:38] LABS: ABG Base Excess 3.6 MMOL/L (-2.5-2.5); ABG HCO3 29.5 MMOL/L (20-26); ABG Oxygen Saturation 98.3 % (95-100); ABG PCO2 50.2 MM HG (35-48); ABG PH 7.387 (7.35-7.45); ABG PO2 111.5 MM HG (80-95)
[2021-01-18 06:12] LABS: Basophils % 0.1 % (0.0-0.8); Eosinophils # 0.1 10*3/uL (0.0-0.87); Eosinophils % 0.7 % (0.00-10.9); Hematocrit 38.4 VOL% (35.7-47.0); Hemoglobin 11.7 GM/DL (12.0-16.0); Immature Granulocytes Absolute 0.11 #; Lymphocytes % 9.2 % (21.3-54.2); Mean Corpuscular HGB Conc 30.5 GM/DL (32-36); Mean Corpuscular Volume 104.3 FL (87-102); Platelet Count 210 T/CUMM (130-400); Red Blood Count 3.68 MC/CUMM (3.8-5.5); Red Cell Distribution Width 15.1 % (9.3-17.3); White Blood Count 10.7 T/CUMM (4-12)
[2021-01-18 06:26] LABS: Calcium 7.5 MG/DL (8.5-10.1); Osmolality,Calculated 281.7 MOS/KG (273-304); Potassium 4.4 MMOL/L (3.5-5.1)
[2021-01-18 07:31] VITALS: BP 109/51
[2021-01-18] MEDS ORDERED: BISACODYL 10 MG SUPP RECTAL ONE (08:48)
[2021-01-18] MEDS: cefTRIAXone 1,000 MG in SODIUM CHLORIDE 0.9% 100 ML IV SCH (09:07)
[2021-01-18] MEDS: INSULIN GLARGINE 100 UNIT/ML SUBCUT SCH (09:10)
[2021-01-18] MEDS: NYSTATIN 500,000 UNIT/5 ML UDCUP SWISH/SWAL SCH (09:10)
[2021-01-18] MEDS: BUDESONIDE/FORMOTEROL 160-4.5 INHALER 6 GM INH SCH (09:11)
[2021-01-18] MEDS: POLYETHYLENE GLYCOL POWDER 17 GM PACK PO SCH (09:11)
[2021-01-18] MEDS: azaTHIOprine 50 MG TABLET PO SCH (09:12)
[2021-01-18] MEDS: FUROSEMIDE 20 MG TABLET PO SCH (09:13)
[2021-01-18] MEDS: ESTRADIOL 1 MG TABLET PO SCH (09:13)
[2021-01-18] MEDS: GABAPENTIN 100 MG CAPSULE PO SCH (09:13)
[2021-01-18] MEDS: DULoxetine 30 MG CAPSULE PO SCH (09:13)
[2021-01-18] MEDS: MAGNESIUM CHLORIDE 64 MG TABLET PO SCH (09:13)
[2021-01-18] MEDS: THEOPHYLLINE ER (24 HR) 400 MG CAPSULE PO SCH (09:13)
[2021-01-18] MEDS: LEVOFLOXACIN 250 MG TABLET PO SCH (09:14)
[2021-01-18] MEDS: CETIRIZINE 10 MG TABLET PO SCH (09:14)
[2021-01-18] MEDS: LEVOTHYROXINE 137 MCG TABLET PO SCH (09:14)
[2021-01-18] MEDS: METOPROLOL TARTRATE 50 MG TABLET PO SCH (09:14)
[2021-01-18] MEDS: PILOCARPINE 5 MG TABLET PO SCH (09:18)
[2021-01-18] MEDS: methylPREDNISolone SOD SUC 40 MG/1 ML VIAL IV SCH (09:22)
[2021-01-18] MEDS ORDERED: INFLUENZA VIRUS VACCINE 0.5 ML SYRINGE IM ONE (11:00)
== END 2021-01-18 11:52 | DRG 602 ==
LOC: N.ED 18:36 → N.EDINP 21:13 → SUATTDRO 21:13 → N.3E 23:22 → N.ICU 01-06 15:22 → N.TELEN 01-08 20:06 → N.ICU 01-08 20:07 → N.5E 01-11 19:30
PROVIDERS: ADMIT Internal Medicine; ATTEND Internal Medicine

== ENCOUNTER 2021-07-17 10:47 | Inpatient (IN) ==
[2021-07-17 15:48] LABS: Basophils # 0.1 10*3/uL (0.0-0.2); Basophils % 0.5 % (0.0-0.8); Eosinophils # 0.1 10*3/uL (0.0-0.87); Eosinophils % 0.7 % (0.00-10.9); Hematocrit 39.1 VOL% (35.7-47.0); Hemoglobin 12.5 GM/DL (12.0-16.0); Immature Granulocytes % 1.5 %; Immature Granulocytes Absolute 0.16 #; Lymphocytes # 1.1 10*3/uL (1.4-4.0); Lymphocytes % 9.8 % (21.3-54.2); Mean Corpuscular Volume 103.7 FL (87-102); Mean Platelet Volume 10.2 FL (9.6-12.0); Monocytes % 8.7 % (1.7-12.7); NRBC # 0.11 10*3/uL; Neutrophils % 78.8 % (38.7-73.9); Platelet Count 221 T/CUMM (130-400); Red Blood Count 3.77 MC/CUMM (3.8-5.5); Red Cell Distribution Width 16.5 % (9.3-17.3)
[2021-07-17] MEDS ORDERED: methylPREDNISolone SOD SUC 125 MG/2 ML VIAL IV STA (16:08)
[2021-07-17] MEDS ORDERED: cefTRIAXone 1,000 MG in SODIUM CHLORIDE 0.9% 100 ML IV STA (16:08)
[2021-07-17 16:10] LABS: Mucus,Urine Occasional /LPF (Occasional); RBC,Urine 3 /HPF (0-4); Squamous Epithelial Cell,Urine Occasional /HPF (0-10)
[2021-07-17 16:13] LABS: Albumin 3.1 G/DL (3.4-5.0); Bilirubin,Total 0.5 MG/DL (0.20-1.00); Calcium 7.1 MG/DL (8.5-10.1); Osmolality,Calculated 284.1 MOS/KG (273-304); Potassium 4.4 MMOL/L (3.5-5.1); Total Protein 6.7 G/DL (6.4-8.2)
[2021-07-17 16:14] LABS: Urine Color Yellow (Yellow)
[2021-07-17 16:15] LABS: Bilirubin,Urine Negative (Negative); Blood, Urine Moderate mg/dL (Negative); Glucose,Urine (UA) 100 mg/dL (Negative); Ketones,Urine Negative (Negative); Nitrite,Urine Negative (Negative); Protein,Urine 1+ mg/dL (Negative); Urine Appearance Slightly Cloudy (Clear); Urine Urobilinogen 0.2 eU/dL (<2.0); Urine pH 5.5 (4.5-8.0)
[2021-07-17] MEDS ORDERED: GLUCAGON 1 MG VIAL IM PRN (18:14)
[2021-07-17] MEDS ORDERED: DEXTROSE 10% 250 ML BAG IV PRN (18:21)
[2021-07-17] MEDS: AZITHROMYCIN INJ 500 MG in SODIUM CHLORIDE 0.9% 250 ML IV SCH (21:46)
[2021-07-17] MEDS: ATORVASTATIN 40 MG TABLET PO SCH (21:48)
[2021-07-17] MEDS: METOPROLOL TARTRATE 50 MG TABLET PO SCH (21:48)
[2021-07-17] MEDS: INSULIN LISPRO 100 UNIT/ML SUBCUT SCH (23:58)
[2021-07-18] MEDS: ALBUTEROL/IPRATROPIUM 3 ML NEB RESP TX SCH ×4 (01:11→19:04)
[2021-07-18] MEDS ORDERED: methylPREDNISolone SOD SUC 40 MG/1 ML VIAL IV SCH (04:00)
[2021-07-18 05:17] LABS: Basophils # 0.1 10*3/uL (0.0-0.2); Basophils % 0.6 % (0.0-0.8); Hematocrit 38.9 VOL% (35.7-47.0); Hemoglobin 12.1 GM/DL (12.0-16.0); Immature Granulocytes % 2.9 %; Immature Granulocytes Absolute 0.29 #; Lymphocytes # 0.5 10*3/uL (1.4-4.0); Lymphocytes % 5.4 % (21.3-54.2); Mean Corpuscular HGB Conc 31.1 GM/DL (32-36); Mean Corpuscular Volume 105.1 FL (87-102); Mean Platelet Volume 10.2 FL (9.6-12.0); Monocytes # 0.4 10*3/uL (0.11-0.8); Monocytes % 3.5 % (1.7-12.7); NRBC # 0.15 10*3/uL; Neutrophils % 87.6 % (38.7-73.9); Platelet Count 211 T/CUMM (130-400); Red Cell Distribution Width 16.5 % (9.3-17.3)
[2021-07-18 05:38] LABS: Calcium 7.2 MG/DL (8.5-10.1)
[2021-07-18] MEDS: LEVOTHYROXINE 137 MCG TABLET PO SCH (05:44)
[2021-07-18] MEDS: THEOPHYLLINE ER (24 HR) 400 MG CAPSULE PO SCH (09:10)
[2021-07-18] MEDS: METOPROLOL TARTRATE 50 MG TABLET PO SCH ×2 (09:10→20:16)
[2021-07-18] MEDS: PANTOPRAZOLE 40 MG TABLET PO SCH (09:10)
[2021-07-18] MEDS: INSULIN LISPRO 100 UNIT/ML SUBCUT SCH ×4 (09:14→20:26)
[2021-07-18] MEDS ORDERED: FUROSEMIDE 20 MG/2 ML VIAL IV SCH (12:00)
[2021-07-18] MEDS ORDERED: FUROSEMIDE 20 MG/2 ML VIAL IV ONE (12:03)
[2021-07-18] MEDS: DAPAGLIFLOZIN 10 MG TABLET PO SCH (12:56)
[2021-07-18] MEDS: cefTRIAXone 1,000 MG in SODIUM CHLORIDE 0.9% 100 ML IV SCH (16:59)
[2021-07-18] MEDS: methylPREDNISolone SOD SUC 40 MG/1 ML VIAL IV SCH (16:59)
[2021-07-18] MEDS: AZITHROMYCIN INJ 500 MG in SODIUM CHLORIDE 0.9% 250 ML IV SCH (20:15)
[2021-07-18] MEDS: ATORVASTATIN 40 MG TABLET PO SCH (20:16)
[2021-07-19] MEDS: ALBUTEROL/IPRATROPIUM 3 ML NEB RESP TX SCH ×4 (00:12→19:19)
[2021-07-19] MEDS: methylPREDNISolone SOD SUC 40 MG/1 ML VIAL IV SCH ×2 (04:06→16:27)
[2021-07-19] MEDS: LEVOTHYROXINE 137 MCG TABLET PO SCH (05:57)
[2021-07-19 06:02] LABS: Calcium 7.5 MG/DL (8.5-10.1); Osmolality,Calculated 295.3 MOS/KG (273-304); Potassium 4.7 MMOL/L (3.5-5.1)
[2021-07-19 09:41] LABS: Basophils % 0.1 % (0.0-0.8); Hematocrit 40.9 VOL% (35.7-47.0); Hemoglobin 12.7 GM/DL (12.0-16.0); Immature Granulocytes % 1.2 %; Immature Granulocytes Absolute 0.13 #; Lymphocytes # 0.5 10*3/uL (1.4-4.0); Lymphocytes % 4.2 % (21.3-54.2); Mean Corpuscular HGB Conc 31.1 GM/DL (32-36); Mean Corpuscular Volume 105.1 FL (87-102); Mean Platelet Volume 10.1 FL (9.6-12.0); Monocytes # 0.4 10*3/uL (0.11-0.8); Monocytes % 3.5 % (1.7-12.7); NRBC # 0.06 10*3/uL; Platelet Count 237 T/CUMM (130-400); Red Blood Count 3.89 MC/CUMM (3.8-5.5); Red Cell Distribution Width 16.8 % (9.3-17.3)
[2021-07-19] MEDS: INSULIN LISPRO 100 UNIT/ML SUBCUT SCH ×4 (09:54→21:18)
[2021-07-19] MEDS: PANTOPRAZOLE 40 MG TABLET PO SCH (09:55)
[2021-07-19] MEDS: DAPAGLIFLOZIN 10 MG TABLET PO SCH (09:55)
[2021-07-19] MEDS: METOPROLOL TARTRATE 50 MG TABLET PO SCH ×2 (09:55→21:18)
[2021-07-19] MEDS: GLIMEPIRIDE 2 MG TABLET PO SCH (09:55)
[2021-07-19] MEDS: THEOPHYLLINE ER (24 HR) 400 MG CAPSULE PO SCH (09:55)
[2021-07-19 10:15] LABS: Anisocytosis 1+; Band Neutrophils 2 % (0-10); Lymphocytes 2 % (20-55); Macrocytosis 1+; Nucleated Red Blood Cells 1 (0-5); Platelet Estimate Normal; Total Cells Counted 100
[2021-07-19] MEDS: cefTRIAXone 1,000 MG in SODIUM CHLORIDE 0.9% 100 ML IV SCH (16:26)
[2021-07-19] MEDS: ATORVASTATIN 40 MG TABLET PO SCH (21:18)
[2021-07-19] MEDS: AZITHROMYCIN INJ 500 MG in SODIUM CHLORIDE 0.9% 250 ML IV SCH (21:20)
[2021-07-20] MEDS: ALBUTEROL/IPRATROPIUM 3 ML NEB RESP TX SCH ×4 (00:12→20:00)
[2021-07-20] MEDS: methylPREDNISolone SOD SUC 40 MG/1 ML VIAL IV SCH ×2 (03:59→21:00)
[2021-07-20] MEDS: LEVOTHYROXINE 137 MCG TABLET PO SCH (05:58)
[2021-07-20 06:56] LABS: Basophils % 0.2 % (0.0-0.8); Hemoglobin 11.8 GM/DL (12.0-16.0); Immature Granulocytes % 2.7 %; Immature Granulocytes Absolute 0.34 #; Lymphocytes # 0.9 10*3/uL (1.4-4.0); Lymphocytes % 7.2 % (21.3-54.2); Mean Corpuscular HGB Conc 31.9 GM/DL (32-36); Mean Corpuscular Volume 103.4 FL (87-102); Mean Platelet Volume 10.8 FL (9.6-12.0); Monocytes # 0.9 10*3/uL (0.11-0.8); Monocytes % 7.3 % (1.7-12.7); NRBC # 0.04 10*3/uL; Neutrophils % 82.6 % (38.7-73.9); Platelet Count 195 T/CUMM (130-400); Red Blood Count 3.58 MC/CUMM (3.8-5.5); Red Cell Distribution Width 16.7 % (9.3-17.3); White Blood Count 12.4 T/CUMM (4-12)
[2021-07-20 07:21] LABS: Calcium 7.3 MG/DL (8.5-10.1); Osmolality,Calculated 292.3 MOS/KG (273-304); Potassium 4.6 MMOL/L (3.5-5.1)
[2021-07-20] MEDS: INSULIN LISPRO 100 UNIT/ML SUBCUT SCH ×4 (10:07→22:17)
[2021-07-20] MEDS: GLIMEPIRIDE 2 MG TABLET PO SCH (10:08)
[2021-07-20] MEDS: PANTOPRAZOLE 40 MG TABLET PO SCH (10:08)
[2021-07-20] MEDS: THEOPHYLLINE ER (24 HR) 400 MG CAPSULE PO SCH (10:08)
[2021-07-20] MEDS: METOPROLOL TARTRATE 50 MG TABLET PO SCH ×2 (10:08→21:00)
[2021-07-20] MEDS: AZITHROMYCIN 250 MG TABLET PO SCH (10:09)
[2021-07-20] MEDS: DAPAGLIFLOZIN 10 MG TABLET PO SCH (10:11)
[2021-07-20] MEDS: cefTRIAXone 1,000 MG in SODIUM CHLORIDE 0.9% 100 ML IV SCH (17:03)
[2021-07-20] MEDS: ATORVASTATIN 40 MG TABLET PO SCH (21:00)
[2021-07-20 21:12] LABS: Arterial Base Excess iSTAT 0 MMOL/L (-2.5-2.5); Arterial Bicarbonate iSTAT 26.8 MMOL/L (20-26); Arterial O2 Saturation iSTAT 95 % (95-100); Arterial PCO2 iSTAT 53 MM HG (35-48); Arterial PO2 iSTAT 82 MM HG (80-95); Arterial Total CO2 iSTAT 28 MMO/L (23-27); Arterial pH iSTAT 7.313 (7.35-7.45)
[2021-07-21] MEDS: ALBUTEROL/IPRATROPIUM 3 ML NEB RESP TX SCH ×4 (00:10→19:30)
[2021-07-21] MEDS ORDERED: DILTIAZEM 50 MG/10 ML VIAL IV ONE (05:35)
[2021-07-21] MEDS ORDERED: ENOXAPARIN 80 MG/0.8 ML SYRINGE SUBCUT ONE (06:32)
[2021-07-21] MEDS: DILTIAZEM INJ 100 MG in SODIUM CHLORIDE 0.9% 100 ML IV SCH (06:44)
[2021-07-21] MEDS: LEVOTHYROXINE 137 MCG TABLET PO SCH (06:53)
[2021-07-21 07:01] LABS: Basophils % 0.2 % (0.0-0.8); Hematocrit 42.1 VOL% (35.7-47.0); Hemoglobin 13.1 GM/DL (12.0-16.0); Immature Granulocytes % 1.1 %; Immature Granulocytes Absolute 0.14 #; Lymphocytes # 0.6 10*3/uL (1.4-4.0); Lymphocytes % 4.9 % (21.3-54.2); Mean Corpuscular HGB Conc 31.1 GM/DL (32-36); Mean Corpuscular Volume 103.7 FL (87-102); Mean Platelet Volume 9.5 FL (9.6-12.0); Monocytes # 0.7 10*3/uL (0.11-0.8); Monocytes % 5.2 % (1.7-12.7); NRBC # 0.06 10*3/uL; Neutrophils % 88.6 % (38.7-73.9); Platelet Count 242 T/CUMM (130-400); Red Blood Count 4.06 MC/CUMM (3.8-5.5); Red Cell Distribution Width 16.6 % (9.3-17.3); White Blood Count 13.1 T/CUMM (4-12)
[2021-07-21 07:20] LABS: Eosinophils 1 % (0-10); Lymphocytes 4 % (20-55); Platelet Estimate Adequate; Total Cells Counted 100
[2021-07-21 07:24] LABS: Calcium 7.6 MG/DL (8.5-10.1); Osmolality,Calculated 303.1 MOS/KG (273-304); Potassium 4.8 MMOL/L (3.5-5.1)
[2021-07-21] MEDS ORDERED: DIGOXIN 0.5 MG/2 ML AMP IV ONE ×2 (07:56→12:00)
[2021-07-21] MEDS: INSULIN LISPRO 100 UNIT/ML SUBCUT SCH ×4 (08:47→21:29)
[2021-07-21] MEDS ORDERED: METOPROLOL TARTRATE 5 MG/5 ML VIAL IV ONE (09:30)
[2021-07-21] MEDS ORDERED: SODIUM CHLORIDE 0.45% 1,000 ML IV SCH ×2 (09:30→13:00)
[2021-07-21] MEDS ORDERED: AMIODARONE INJ 150 MG in DEXTROSE 5% 100 ML IV ONE (10:04)
[2021-07-21] MEDS: methylPREDNISolone SOD SUC 40 MG/1 ML VIAL IV SCH ×2 (10:06→21:08)
[2021-07-21] MEDS: DAPAGLIFLOZIN 10 MG TABLET PO SCH ×2 (10:08→10:32)
[2021-07-21] MEDS: METOPROLOL TARTRATE 50 MG TABLET PO SCH ×3 (10:08→21:08)
[2021-07-21] MEDS: DULoxetine 30 MG CAPSULE PO SCH ×2 (10:08→10:32)
[2021-07-21] MEDS: cefTRIAXone 1,000 MG in SODIUM CHLORIDE 0.9% 100 ML IV SCH (10:08)
[2021-07-21] MEDS: THEOPHYLLINE ER (24 HR) 400 MG CAPSULE PO SCH ×2 (10:08→10:33)
[2021-07-21] MEDS: GABAPENTIN 300 MG CAPSULE PO SCH ×4 (10:09→21:08)
[2021-07-21] MEDS: PANTOPRAZOLE 40 MG TABLET PO SCH ×2 (10:09→10:32)
[2021-07-21 10:23] LABS: Arterial Base Excess iSTAT 0 MMOL/L (-2.5-2.5); Arterial Bicarbonate iSTAT 26.3 MMOL/L (20-26); Arterial O2 Saturation iSTAT 94 % (95-100); Arterial PCO2 iSTAT 49 MM HG (35-48); Arterial PO2 iSTAT 77 MM HG (80-95); Arterial Total CO2 iSTAT 28 MMO/L (23-27); Arterial pH iSTAT 7.334 (7.35-7.45)
[2021-07-21] MEDS: GLIMEPIRIDE 2 MG TABLET PO SCH (10:29)
[2021-07-21] MEDS: AZITHROMYCIN 250 MG TABLET PO SCH (10:29)
[2021-07-21] MEDS ORDERED: AMIODARONE INJ 450 MG in DEXTROSE 5% 241 ML IV SCH (10:30)
[2021-07-21] MEDS: BUDESONIDE/FORMOTEROL 160-4.5 INHALER 6 GM INH SCH ×2 (10:33→21:08)
[2021-07-21] MEDS: METOPROLOL TARTRATE 5 MG/5 ML VIAL IV SCH ×2 (15:30→18:04)
[2021-07-21 15:59] LABS: Myeloperoxidase Antibody 0.5 U
[2021-07-21] MEDS: ENOXAPARIN 80 MG/0.8 ML SYRINGE SUBCUT SCH (18:04)
[2021-07-21] MEDS: AMIODARONE INJ 450 MG in DEXTROSE 5% 241 ML IV SCH (19:15)
[2021-07-21] MEDS: ATORVASTATIN 40 MG TABLET PO SCH (21:08)
[2021-07-21] MEDS ORDERED: LEVALBUTEROL 1.25 MG/3 ML NEB RESP TX ONE (23:50)
[2021-07-22] MEDS: LEVALBUTEROL 1.25 MG/3 ML NEB RESP TX SCH ×4 (00:15→19:55)
[2021-07-22] MEDS: METOPROLOL TARTRATE 5 MG/5 ML VIAL IV SCH ×2 (00:22→06:38)
[2021-07-22] MEDS ORDERED: LEVALBUTEROL 1.25 MG/3 ML NEB RESP TX SCH (01:00)
[2021-07-22 04:39] LABS: Basophils % 0.1 % (0.0-0.8); Hematocrit 39.2 VOL% (35.7-47.0); Hemoglobin 12.2 GM/DL (12.0-16.0); Immature Granulocytes % 0.8 %; Immature Granulocytes Absolute 0.11 #; Lymphocytes # 0.4 10*3/uL (1.4-4.0); Lymphocytes % 2.6 % (21.3-54.2); Mean Corpuscular HGB Conc 31.1 GM/DL (32-36); Mean Corpuscular Volume 104.8 FL (87-102); Mean Platelet Volume 9.8 FL (9.6-12.0); Monocytes # 0.2 10*3/uL (0.11-0.8); Monocytes % 1.6 % (1.7-12.7); NRBC # 0.05 10*3/uL; Neutrophils % 94.9 % (38.7-73.9); Platelet Count 183 T/CUMM (130-400); Red Blood Count 3.74 MC/CUMM (3.8-5.5); Red Cell Distribution Width 16.1 % (9.3-17.3)
[2021-07-22 05:01] LABS: Anisocytosis 1+; Lymphocytes 2 % (20-55); Macrocytosis 1+; Osmolality,Calculated 296.4 MOS/KG (273-304); Potassium 4.9 MMOL/L (3.5-5.1); Total Cells Counted 100
[2021-07-22 05:02] LABS: Platelet Estimate Adequate
[2021-07-22] MEDS: LEVOTHYROXINE 137 MCG TABLET PO SCH (06:38)
[2021-07-22] MEDS: ENOXAPARIN 80 MG/0.8 ML SYRINGE SUBCUT SCH (06:38)
[2021-07-22] MEDS: methylPREDNISolone SOD SUC 40 MG/1 ML VIAL IV SCH (08:43)
[2021-07-22] MEDS: GLIMEPIRIDE 2 MG TABLET PO SCH (08:44)
[2021-07-22] MEDS: THEOPHYLLINE ER (24 HR) 400 MG CAPSULE PO SCH (08:44)
[2021-07-22] MEDS: PANTOPRAZOLE 40 MG TABLET PO SCH (08:44)
[2021-07-22] MEDS: DAPAGLIFLOZIN 10 MG TABLET PO SCH (08:44)
[2021-07-22] MEDS: DULoxetine 30 MG CAPSULE PO SCH (08:45)
[2021-07-22] MEDS: METOPROLOL TARTRATE 50 MG TABLET PO SCH ×2 (08:45→21:20)
[2021-07-22] MEDS: GABAPENTIN 300 MG CAPSULE PO SCH ×3 (08:45→21:20)
[2021-07-22] MEDS: INSULIN LISPRO 100 UNIT/ML SUBCUT SCH ×5 (08:47→21:27)
[2021-07-22] MEDS: cefTRIAXone 1,000 MG in SODIUM CHLORIDE 0.9% 100 ML IV SCH (08:50)
[2021-07-22] MEDS: BUDESONIDE/FORMOTEROL 160-4.5 INHALER 6 GM INH SCH ×2 (08:56→21:20)
[2021-07-22] MEDS ORDERED: DIGOXIN 0.5 MG/2 ML AMP IV ONE (11:19)
[2021-07-22] MEDS: AMIODARONE INJ 450 MG in DEXTROSE 5% 241 ML IV SCH (12:07)
[2021-07-22] MEDS: DILTIAZEM INJ 100 MG in SODIUM CHLORIDE 0.9% 100 ML IV SCH (12:08)
[2021-07-22] MEDS: ASCORBIC ACID 500 MG TABLET PO SCH ×2 (12:17→21:19)
[2021-07-22] MEDS: AMIODARONE 200 MG TABLET PO SCH ×2 (12:17→21:19)
[2021-07-22] MEDS: SODIUM CHLORIDE 0.45% 1,000 ML IV SCH (12:26)
[2021-07-22] MEDS: APIXABAN 5 MG TABLET PO SCH (21:19)
[2021-07-22] MEDS: ATORVASTATIN 40 MG TABLET PO SCH (21:20)
[2021-07-23] MEDS: SODIUM CHLORIDE 0.45% 1,000 ML IV SCH (01:34)
[2021-07-23] MEDS: LEVALBUTEROL 1.25 MG/3 ML NEB RESP TX SCH ×4 (02:16→19:40)
[2021-07-23 06:07] LABS: Basophils % 0.2 % (0.0-0.8); Eosinophils % 0.2 % (0.00-10.9); Hematocrit 42.2 VOL% (35.7-47.0); Hemoglobin 12.8 GM/DL (12.0-16.0); Immature Granulocytes % 1.3 %; Immature Granulocytes Absolute 0.18 #; Lymphocytes % 7.1 % (21.3-54.2); Mean Corpuscular HGB Conc 30.3 GM/DL (32-36); Mean Corpuscular Volume 107.4 FL (87-102); Mean Platelet Volume 9.7 FL (9.6-12.0); Monocytes % 7.2 % (1.7-12.7); NRBC # 0.19 10*3/uL; Platelet Count 180 T/CUMM (130-400); Red Blood Count 3.93 MC/CUMM (3.8-5.5); Red Cell Distribution Width 16.2 % (9.3-17.3); White Blood Count 14.3 T/CUMM (4-12)
[2021-07-23] MEDS: LEVOTHYROXINE 137 MCG TABLET PO SCH (06:12)
[2021-07-23 06:23] LABS: Calcium 7.1 MG/DL (8.5-10.1); Osmolality,Calculated 291.8 MOS/KG (273-304); Potassium 4.6 MMOL/L (3.5-5.1)
[2021-07-23] MEDS: INSULIN LISPRO 100 UNIT/ML SUBCUT SCH ×4 (07:54→22:22)
[2021-07-23] MEDS ORDERED: SODIUM CHLORIDE 0.45% 1,000 ML IV SCH (08:00)
[2021-07-23] MEDS: GLIMEPIRIDE 2 MG TABLET PO SCH (08:05)
[2021-07-23] MEDS ORDERED: ETOMIDATE 20 MG/10 ML VIAL IV ONE (08:14)
[2021-07-23] MEDS ORDERED: propofoL 200 MG/20 ML VIAL IV ONE (08:14)
[2021-07-23] MEDS: DAPAGLIFLOZIN 10 MG TABLET PO SCH (09:57)
[2021-07-23] MEDS: DULoxetine 30 MG CAPSULE PO SCH (09:58)
[2021-07-23] MEDS: THEOPHYLLINE ER (24 HR) 400 MG CAPSULE PO SCH (09:59)
[2021-07-23] MEDS: ASCORBIC ACID 500 MG TABLET PO SCH ×2 (10:00→21:38)
[2021-07-23] MEDS ORDERED: LACTATED RINGERS 1,000 ML IV SCH (10:00)
[2021-07-23] MEDS: METOPROLOL TARTRATE 100 MG TABLET PO SCH ×2 (10:02→21:40)
[2021-07-23] MEDS: GABAPENTIN 300 MG CAPSULE PO SCH ×3 (10:02→21:38)
[2021-07-23] MEDS: AMIODARONE 200 MG TABLET PO SCH ×2 (10:03→21:38)
[2021-07-23] MEDS: APIXABAN 5 MG TABLET PO SCH ×2 (10:04→21:38)
[2021-07-23] MEDS: PANTOPRAZOLE 40 MG TABLET PO SCH (10:05)
[2021-07-23] MEDS: methylPREDNISolone SOD SUC 40 MG/1 ML VIAL IV SCH (10:06)
[2021-07-23] MEDS: cefTRIAXone 1,000 MG in SODIUM CHLORIDE 0.9% 100 ML IV SCH (10:10)
[2021-07-23] MEDS: BUDESONIDE/FORMOTEROL 160-4.5 INHALER 6 GM INH SCH ×2 (10:11→21:38)
[2021-07-23] MEDS: ATORVASTATIN 40 MG TABLET PO SCH (21:38)
[2021-07-24] MEDS: LEVALBUTEROL 1.25 MG/3 ML NEB RESP TX SCH ×4 (01:25→19:10)
[2021-07-24 06:02] LABS: Basophils % 0.3 % (0.0-0.8); Eosinophils % 0.1 % (0.00-10.9); Hematocrit 41.4 VOL% (35.7-47.0); Hemoglobin 12.6 GM/DL (12.0-16.0); Immature Granulocytes % 2.3 %; Immature Granulocytes Absolute 0.32 #; Lymphocytes # 0.7 10*3/uL (1.4-4.0); Lymphocytes % 4.8 % (21.3-54.2); Mean Corpuscular HGB Conc 30.4 GM/DL (32-36); Mean Corpuscular Volume 107.5 FL (87-102); Mean Platelet Volume 10.2 FL (9.6-12.0); Monocytes # 0.9 10*3/uL (0.11-0.8); Monocytes % 6.7 % (1.7-12.7); NRBC # 0.17 10*3/uL; Neutrophils % 85.8 % (38.7-73.9); Platelet Count 172 T/CUMM (130-400); Red Blood Count 3.85 MC/CUMM (3.8-5.5); Red Cell Distribution Width 16.5 % (9.3-17.3)
[2021-07-24] MEDS: LEVOTHYROXINE 137 MCG TABLET PO SCH (06:05)
[2021-07-24 06:17] LABS: Calcium 6.7 MG/DL (8.5-10.1)
[2021-07-24 06:27] LABS: Lymphocytes 3 % (20-55); Nucleated Red Blood Cells 2 (0-5); Platelet Estimate Adequate; Total Cells Counted 100
[2021-07-24 08:36] LABS: c-ANCA Negative (Negative); p-ANCA Negative (Negative)
[2021-07-24] MEDS: INSULIN LISPRO 100 UNIT/ML SUBCUT SCH ×4 (10:48→22:25)
[2021-07-24] MEDS: AMIODARONE 200 MG TABLET PO SCH ×2 (10:50→22:24)
[2021-07-24] MEDS: GLIMEPIRIDE 2 MG TABLET PO SCH (10:50)
[2021-07-24] MEDS: DULoxetine 30 MG CAPSULE PO SCH (10:51)
[2021-07-24] MEDS: DAPAGLIFLOZIN 10 MG TABLET PO SCH (10:51)
[2021-07-24] MEDS: GABAPENTIN 300 MG CAPSULE PO SCH ×3 (10:51→22:24)
[2021-07-24] MEDS: APIXABAN 5 MG TABLET PO SCH ×2 (10:51→22:23)
[2021-07-24] MEDS: METOPROLOL TARTRATE 100 MG TABLET PO SCH ×2 (10:51→22:23)
[2021-07-24] MEDS: BUDESONIDE/FORMOTEROL 160-4.5 INHALER 6 GM INH SCH ×2 (10:52→22:23)
[2021-07-24] MEDS: ASCORBIC ACID 500 MG TABLET PO SCH ×2 (10:52→22:24)
[2021-07-24] MEDS: PANTOPRAZOLE 40 MG TABLET PO SCH (10:52)
[2021-07-24] MEDS: THEOPHYLLINE ER (24 HR) 400 MG CAPSULE PO SCH (10:52)
[2021-07-24] MEDS: methylPREDNISolone SOD SUC 40 MG/1 ML VIAL IV SCH (10:55)
[2021-07-24] MEDS: cefTRIAXone 1,000 MG in SODIUM CHLORIDE 0.9% 100 ML IV SCH (11:02)
[2021-07-24] MEDS: ATORVASTATIN 40 MG TABLET PO SCH (22:24)
[2021-07-24 23:25] LABS: Basophils % 0.2 % (0.0-0.8); Hematocrit 41.7 VOL% (35.7-47.0); Hemoglobin 12.9 GM/DL (12.0-16.0); Immature Granulocytes % 2.3 %; Lymphocytes # 0.3 10*3/uL (1.4-4.0); Lymphocytes % 1.9 % (21.3-54.2); Mean Corpuscular HGB Conc 30.9 GM/DL (32-36); Mean Corpuscular Volume 105.6 FL (87-102); Mean Platelet Volume 10.1 FL (9.6-12.0); Monocytes # 0.4 10*3/uL (0.11-0.8); Monocytes % 2.4 % (1.7-12.7); NRBC # 0.07 10*3/uL; Neutrophils % 93.2 % (38.7-73.9); Platelet Count 155 T/CUMM (130-400); Red Blood Count 3.95 MC/CUMM (3.8-5.5); Red Cell Distribution Width 16.3 % (9.3-17.3); White Blood Count 17.6 T/CUMM (4-12)
[2021-07-24 23:50] LABS: Calcium 6.8 MG/DL (8.5-10.1); Osmolality,Calculated 298.5 MOS/KG (273-304); Potassium 5.1 MMOL/L (3.5-5.1)
[2021-07-24 23:57] LABS: Platelet Estimate Normal; Total Cells Counted 100
[2021-07-25 00:27] LABS: ABG Base Excess -3.4 MMOL/L (-2.5-2.5); ABG HCO3 21.6 MMOL/L (20-26); ABG Oxygen Saturation 98.1 % (95-100)
[2021-07-25] MEDS: LEVALBUTEROL 1.25 MG/3 ML NEB RESP TX SCH ×4 (01:00→18:59)
[2021-07-25 01:10] LABS: ABG PCO2 73.7 MM HG (35-48)
[2021-07-25 01:12] LABS: ABG PH 7.179 (7.35-7.45)
[2021-07-25 05:37] LABS: Basophils % 0.2 % (0.0-0.8); Hematocrit 38.9 VOL% (35.7-47.0); Hemoglobin 12.1 GM/DL (12.0-16.0); Immature Granulocytes % 1.3 %; Lymphocytes # 0.5 10*3/uL (1.4-4.0); Lymphocytes % 3.3 % (21.3-54.2); Mean Corpuscular HGB Conc 31.1 GM/DL (32-36); Mean Corpuscular Volume 104.6 FL (87-102); Mean Platelet Volume 10.4 FL (9.6-12.0); Monocytes # 0.6 10*3/uL (0.11-0.8); Monocytes % 4.1 % (1.7-12.7); NRBC # 0.03 10*3/uL; Neutrophils % 91.1 % (38.7-73.9); Platelet Count 136 T/CUMM (130-400); Red Blood Count 3.72 MC/CUMM (3.8-5.5); Red Cell Distribution Width 16.1 % (9.3-17.3); White Blood Count 14.9 T/CUMM (4-12)
[2021-07-25 05:56] LABS: Calcium 6.8 MG/DL (8.5-10.1); Osmolality,Calculated 293.5 MOS/KG (273-304); Potassium 4.5 MMOL/L (3.5-5.1)
[2021-07-25 06:15] LABS: Lymphocytes 4 % (20-55); Platelet Estimate Normal; Total Cells Counted 100
[2021-07-25 06:23] LABS: ABG Base Excess -1.4 MMOL/L (-2.5-2.5); ABG HCO3 23.2 MMOL/L (20-26); ABG PCO2 58.9 MM HG (35-48); ABG PH 7.268 (7.35-7.45); ABG PO2 72.4 MM HG (80-95); ABG TCO2 24.2 MMOL/L (23-27)
[2021-07-25] MEDS: LEVOTHYROXINE 137 MCG TABLET PO SCH (07:03)
[2021-07-25] MEDS: INSULIN LISPRO 100 UNIT/ML SUBCUT SCH ×4 (08:36→22:05)
[2021-07-25] MEDS: predniSONE 20 MG TABLET PO SCH (09:47)
[2021-07-25] MEDS: ASCORBIC ACID 500 MG TABLET PO SCH ×2 (09:47→22:06)
[2021-07-25] MEDS: METOPROLOL TARTRATE 100 MG TABLET PO SCH ×2 (09:47→22:06)
[2021-07-25] MEDS: GABAPENTIN 300 MG CAPSULE PO SCH ×3 (09:47→22:06)
[2021-07-25] MEDS: THEOPHYLLINE ER (24 HR) 400 MG CAPSULE PO SCH (09:47)
[2021-07-25] MEDS: AMIODARONE 200 MG TABLET PO SCH ×2 (09:47→22:07)
[2021-07-25] MEDS: DULoxetine 30 MG CAPSULE PO SCH (09:47)
[2021-07-25] MEDS: APIXABAN 5 MG TABLET PO SCH ×2 (09:47→22:07)
[2021-07-25] MEDS: PANTOPRAZOLE 40 MG TABLET PO SCH (09:47)
[2021-07-25] MEDS: DAPAGLIFLOZIN 10 MG TABLET PO SCH (09:47)
[2021-07-25] MEDS: GLIMEPIRIDE 2 MG TABLET PO SCH (09:51)
[2021-07-25 10:08] LABS: Arterial Base Excess iSTAT -1 MMOL/L (-2.5-2.5); Arterial Bicarbonate iSTAT 27.9 MMOL/L (20-26); Arterial O2 Saturation iSTAT 95 % (95-100); Arterial PCO2 iSTAT 63 MM HG (35-48); Arterial PO2 iSTAT 91 MM HG (80-95); Arterial Total CO2 iSTAT 30 MMO/L (23-27); Arterial pH iSTAT 7.251 (7.35-7.45)
[2021-07-25] MEDS: BUDESONIDE/FORMOTEROL 160-4.5 INHALER 6 GM INH SCH ×2 (10:38→22:05)
[2021-07-25] MEDS: cefTRIAXone 1,000 MG in SODIUM CHLORIDE 0.9% 100 ML IV SCH (14:52)
[2021-07-25 17:23] LABS: Arterial Base Excess iSTAT -1 MMOL/L (-2.5-2.5); Arterial Bicarbonate iSTAT 27.4 MMOL/L (20-26); Arterial O2 Saturation iSTAT 96 % (95-100); Arterial PCO2 iSTAT 64 MM HG (35-48); Arterial PO2 iSTAT 103 MM HG (80-95); Arterial Total CO2 iSTAT 29 MMO/L (23-27); Arterial pH iSTAT 7.238 (7.35-7.45)
[2021-07-25] MEDS: ATORVASTATIN 40 MG TABLET PO SCH (22:07)
[2021-07-26] MEDS: LEVALBUTEROL 1.25 MG/3 ML NEB RESP TX SCH ×4 (01:17→19:26)
[2021-07-26 05:00] LABS: Basophils % 0.1 % (0.0-0.8); Eosinophils % 0.1 % (0.00-10.9); Hemoglobin 11.8 GM/DL (12.0-16.0); Immature Granulocytes % 0.9 %; Immature Granulocytes Absolute 0.13 #; Lymphocytes # 0.4 10*3/uL (1.4-4.0); Lymphocytes % 2.6 % (21.3-54.2); Mean Corpuscular HGB Conc 31.9 GM/DL (32-36); Mean Corpuscular Volume 103.1 FL (87-102); Mean Platelet Volume 11.1 FL (9.6-12.0); Monocytes # 0.9 10*3/uL (0.11-0.8); Monocytes % 6.3 % (1.7-12.7); NRBC # 0.04 10*3/uL; Platelet Count 150 T/CUMM (130-400); Red Blood Count 3.59 MC/CUMM (3.8-5.5); Red Cell Distribution Width 15.8 % (9.3-17.3); White Blood Count 14.4 T/CUMM (4-12)
[2021-07-26 05:19] LABS: Calcium 7.4 MG/DL (8.5-10.1); Osmolality,Calculated 297.5 MOS/KG (273-304); Potassium 4.4 MMOL/L (3.5-5.1)
[2021-07-26 05:21] LABS: Band Neutrophils 1 % (0-10); Lymphocytes 5 % (20-55); Total Cells Counted 100
[2021-07-26 05:22] LABS: Hypochromia Slight; Macrocytosis Slight
[2021-07-26 05:23] LABS: Platelet Estimate Adequate
[2021-07-26 05:27] LABS: Folate 11.42 NG/ML (5.38-24.0)
[2021-07-26] MEDS: LEVOTHYROXINE 137 MCG TABLET PO SCH ×2 (05:50→10:15)
[2021-07-26] MEDS ORDERED: INSULIN GLARGINE 100 UNIT/ML SUBCUT SCH ×2 (09:00)
[2021-07-26 09:46] LABS: Arterial Base Excess iSTAT 1 MMOL/L (-2.5-2.5); Arterial Bicarbonate iSTAT 29.6 MMOL/L (20-26); Arterial O2 Saturation iSTAT 99 % (95-100); Arterial PCO2 iSTAT 64 MM HG (35-48); Arterial PO2 iSTAT 136 MM HG (80-95); Arterial Total CO2 iSTAT 32 MMO/L (23-27); Arterial pH iSTAT 7.272 (7.35-7.45)
[2021-07-26] MEDS: THEOPHYLLINE ER (24 HR) 400 MG CAPSULE PO SCH (10:15)
[2021-07-26] MEDS: DULoxetine 30 MG CAPSULE PO SCH (10:15)
[2021-07-26] MEDS: predniSONE 20 MG TABLET PO SCH ×3 (10:15→20:52)
[2021-07-26] MEDS: METOPROLOL TARTRATE 100 MG TABLET PO SCH ×2 (10:15→20:52)
[2021-07-26] MEDS: PANTOPRAZOLE 40 MG TABLET PO SCH (10:16)
[2021-07-26] MEDS: GABAPENTIN 300 MG CAPSULE PO SCH ×3 (10:16→20:52)
[2021-07-26] MEDS: APIXABAN 5 MG TABLET PO SCH ×2 (10:16→20:52)
[2021-07-26] MEDS: ASCORBIC ACID 500 MG TABLET PO SCH ×2 (10:16→20:52)
[2021-07-26] MEDS: AMIODARONE 200 MG TABLET PO SCH ×2 (10:16→20:52)
[2021-07-26] MEDS: AZITHROMYCIN 250 MG TABLET PO SCH (10:16)
[2021-07-26] MEDS: INSULIN LISPRO 100 UNIT/ML SUBCUT SCH ×4 (11:01→20:49)
[2021-07-26] MEDS: BUDESONIDE/FORMOTEROL 160-4.5 INHALER 6 GM INH SCH ×2 (11:01→20:50)
[2021-07-26] MEDS ORDERED: FUROSEMIDE 100 MG/10 ML VIAL IV ONE (11:02)
[2021-07-26 15:22] LABS: Arterial Base Excess iSTAT -1 MMOL/L (-2.5-2.5); Arterial Bicarbonate iSTAT 26.9 MMOL/L (20-26); Arterial O2 Saturation iSTAT 82 % (95-100); Arterial PCO2 iSTAT 60 MM HG (35-48); Arterial PO2 iSTAT 54 MM HG (80-95); Arterial Total CO2 iSTAT 29 MMO/L (23-27); Arterial pH iSTAT 7.258 (7.35-7.45)
[2021-07-26 17:37] LABS: Arterial Base Excess iSTAT -1 MMOL/L (-2.5-2.5); Arterial Bicarbonate iSTAT 28.2 MMOL/L (20-26); Arterial O2 Saturation iSTAT 96 % (95-100); Arterial PCO2 iSTAT 65 MM HG (35-48); Arterial PO2 iSTAT 100 MM HG (80-95); Arterial Total CO2 iSTAT 30 MMO/L (23-27); Arterial pH iSTAT 7.242 (7.35-7.45)
[2021-07-26 18:03] LABS: Calcium 7.5 MG/DL (8.5-10.1); Osmolality,Calculated 306.1 MOS/KG (273-304); Potassium 4.8 MMOL/L (3.5-5.1)
[2021-07-26] MEDS: INSULIN GLARGINE 100 UNIT/ML SUBCUT SCH (20:49)
[2021-07-26] MEDS: ATORVASTATIN 40 MG TABLET PO SCH (20:52)
[2021-07-27] MEDS: LEVALBUTEROL 1.25 MG/3 ML NEB RESP TX SCH ×4 (00:33→19:08)
[2021-07-27 04:03] LABS: Arterial Base Excess iSTAT 3 MMOL/L (-2.5-2.5); Arterial Bicarbonate iSTAT 31.7 MMOL/L (20-26); Arterial O2 Saturation iSTAT 99 % (95-100); Arterial PCO2 iSTAT 70 MM HG (35-48); Arterial PO2 iSTAT 139 MM HG (80-95); Arterial Total CO2 iSTAT 34 MMO/L (23-27); Arterial pH iSTAT 7.262 (7.35-7.45)
[2021-07-27] MEDS: LEVOTHYROXINE 137 MCG TABLET PO SCH (05:31)
[2021-07-27 06:11] LABS: Basophils % 0.1 % (0.0-0.8); Immature Granulocytes % 0.7 %; Immature Granulocytes Absolute 0.09 #; Lymphocytes # 0.2 10*3/uL (1.4-4.0); Lymphocytes % 1.9 % (21.3-54.2); Mean Corpuscular HGB Conc 31.6 GM/DL (32-36); Mean Platelet Volume 11.1 FL (9.6-12.0); Monocytes # 0.3 10*3/uL (0.11-0.8); Monocytes % 2.4 % (1.7-12.7); NRBC # 0.02 10*3/uL; Neutrophils % 94.9 % (38.7-73.9); Platelet Count 148 T/CUMM (130-400); Red Blood Count 3.69 MC/CUMM (3.8-5.5); Red Cell Distribution Width 15.5 % (9.3-17.3); White Blood Count 12.4 T/CUMM (4-12)
[2021-07-27 06:33] LABS: Calcium 7.8 MG/DL (8.5-10.1); Osmolality,Calculated 302.1 MOS/KG (273-304); Potassium 4.5 MMOL/L (3.5-5.1)
[2021-07-27 06:33] LABS: Lymphocytes 2 % (20-55); Total Cells Counted 100
[2021-07-27 06:34] LABS: Platelet Estimate Adequate
[2021-07-27] MEDS: GABAPENTIN 300 MG CAPSULE PO SCH ×3 (10:41→22:17)
[2021-07-27] MEDS: METOPROLOL TARTRATE 100 MG TABLET PO SCH ×2 (10:41→22:17)
[2021-07-27] MEDS: predniSONE 20 MG TABLET PO SCH ×2 (10:41→22:18)
[2021-07-27] MEDS: AZITHROMYCIN 250 MG TABLET PO SCH (10:41)
[2021-07-27] MEDS: INSULIN LISPRO 100 UNIT/ML SUBCUT SCH ×4 (10:41→20:32)
[2021-07-27] MEDS: ASCORBIC ACID 500 MG TABLET PO SCH ×2 (10:41→22:17)
[2021-07-27] MEDS: APIXABAN 5 MG TABLET PO SCH ×2 (10:41→22:18)
[2021-07-27] MEDS: DULoxetine 30 MG CAPSULE PO SCH (10:41)
[2021-07-27] MEDS: PANTOPRAZOLE 40 MG TABLET PO SCH (10:41)
[2021-07-27] MEDS: BUDESONIDE/FORMOTEROL 160-4.5 INHALER 6 GM INH SCH ×2 (10:42→20:36)
[2021-07-27] MEDS: AMIODARONE 200 MG TABLET PO SCH (10:42)
[2021-07-27] MEDS: THEOPHYLLINE ER (24 HR) 400 MG CAPSULE PO SCH (10:42)
[2021-07-27] MEDS: POLYETHYLENE GLYCOL POWDER 17 GM PACK PO SCH (15:35)
[2021-07-27] MEDS: INSULIN GLARGINE 100 UNIT/ML SUBCUT SCH (20:33)
[2021-07-27] MEDS: ATORVASTATIN 40 MG TABLET PO SCH (22:17)
[2021-07-28] MEDS: LEVALBUTEROL 1.25 MG/3 ML NEB RESP TX SCH ×3 (00:13→12:32)
[2021-07-28 05:25] LABS: Basophils % 0.1 % (0.0-0.8); Hematocrit 37.5 VOL% (35.7-47.0); Hemoglobin 11.9 GM/DL (12.0-16.0); Immature Granulocytes % 0.8 %; Immature Granulocytes Absolute 0.11 #; Lymphocytes # 0.3 10*3/uL (1.4-4.0); Lymphocytes % 2.3 % (21.3-54.2); Mean Corpuscular HGB Conc 31.7 GM/DL (32-36); Mean Corpuscular Volume 103.6 FL (87-102); Mean Platelet Volume 10.8 FL (9.6-12.0); Monocytes # 0.4 10*3/uL (0.11-0.8); Monocytes % 2.4 % (1.7-12.7); NRBC # 0.05 10*3/uL; Neutrophils % 94.4 % (38.7-73.9); Platelet Count 176 T/CUMM (130-400); Red Blood Count 3.62 MC/CUMM (3.8-5.5); Red Cell Distribution Width 15.6 % (9.3-17.3); White Blood Count 14.5 T/CUMM (4-12)
[2021-07-28 06:01] LABS: Calcium 7.7 MG/DL (8.5-10.1); Osmolality,Calculated 294.8 MOS/KG (273-304); Potassium 5.1 MMOL/L (3.5-5.1)
[2021-07-28 06:07] LABS: Hypochromia Slight; Lymphocytes 3 % (20-55); Microcytosis Slight; Platelet Estimate Adequate; Total Cells Counted 100
[2021-07-28] MEDS: LEVOTHYROXINE 137 MCG TABLET PO SCH (06:39)
[2021-07-28 08:35] LABS: Arterial Base Excess iSTAT 2 MMOL/L (-2.5-2.5); Arterial Bicarbonate iSTAT 30.1 MMOL/L (20-26); Arterial O2 Saturation iSTAT 93 % (95-100); Arterial PCO2 iSTAT 61 MM HG (35-48); Arterial PO2 iSTAT 76 MM HG (80-95); Arterial Total CO2 iSTAT 32 MMO/L (23-27); Arterial pH iSTAT 7.303 (7.35-7.45)
[2021-07-28] MEDS: AMIODARONE 200 MG TABLET PO SCH (09:03)
[2021-07-28] MEDS: METOPROLOL TARTRATE 100 MG TABLET PO SCH (09:03)
[2021-07-28] MEDS: DULoxetine 30 MG CAPSULE PO SCH (09:03)
[2021-07-28] MEDS: GABAPENTIN 300 MG CAPSULE PO SCH (09:03)
[2021-07-28] MEDS: predniSONE 20 MG TABLET PO SCH (09:03)
[2021-07-28] MEDS: INSULIN LISPRO 100 UNIT/ML SUBCUT SCH ×2 (09:03→12:17)
[2021-07-28] MEDS: ASCORBIC ACID 500 MG TABLET PO SCH (09:03)
[2021-07-28] MEDS: POLYETHYLENE GLYCOL POWDER 17 GM PACK PO SCH (09:03)
[2021-07-28] MEDS: PANTOPRAZOLE 40 MG TABLET PO SCH (09:04)
[2021-07-28] MEDS: BUDESONIDE/FORMOTEROL 160-4.5 INHALER 6 GM INH SCH (09:04)
[2021-07-28] MEDS: AZITHROMYCIN 250 MG TABLET PO SCH (09:04)
[2021-07-28] MEDS: THEOPHYLLINE ER (24 HR) 400 MG CAPSULE PO SCH (09:04)
[2021-07-28] MEDS: APIXABAN 5 MG TABLET PO SCH (09:04)
[2021-07-28] MEDS ORDERED: BISACODYL 10 MG SUPP RECTAL ONE (09:56)
[2021-07-28] MEDS ORDERED: FUROSEMIDE 20 MG/2 ML VIAL IV ONE (10:21)
[2021-07-28 12:17] VITALS: BP 137/70
== END 2021-07-28 13:43 | disposition swing bed (61) | DRG 193 ==
LOC: N.EDINP 10:47 → N.ED 10:47 → SUATTDRO 18:34 → N.5E 07-18 02:22 → SUATTDRO 07-18 12:05 → N.TELES 07-21 06:23
PROVIDERS: ADMIT Internal Medicine; ATTEND Internal Medicine

== ENCOUNTER 2021-08-09 09:29 | Inpatient (IN) ==
[2021-08-09] MEDS ORDERED: ALBUTEROL/IPRATROPIUM 3 ML NEB RESP TX STA (10:07)
[2021-08-09] MEDS ORDERED: methylPREDNISolone SOD SUC 125 MG/2 ML VIAL IV STA (10:07)
[2021-08-09] MEDS ORDERED: DILTIAZEM 50 MG/10 ML VIAL IV STA (10:09)
[2021-08-09] MEDS ORDERED: DILTIAZEM 25 MG/5 ML VIAL IV STA (10:15)
[2021-08-09 10:35] LABS: Arterial Base Excess iSTAT 0 MMOL/L (-2.5-2.5); Arterial Bicarbonate iSTAT 33.4 MMOL/L (20-26); Arterial O2 Saturation iSTAT 88 % (95-100); Arterial PCO2 iSTAT 108 MM HG (35-48); Arterial PO2 iSTAT 80 MM HG (80-95); Arterial Total CO2 iSTAT 37 MMO/L (23-27); Arterial pH iSTAT 7.097 (7.35-7.45)
[2021-08-09 10:45] LABS: PT Patient Result 10.9 SECS (10.5-12.0); Partial Thromboplastin Time 27.3 SECS (23.8-32.1)
[2021-08-09 10:57] LABS: Albumin 3.5 G/DL (3.4-5.0); Bilirubin,Total 0.8 MG/DL (0.20-1.00); Calcium 8.3 MG/DL (8.5-10.1); Osmolality,Calculated 292.4 MOS/KG (273-304); Potassium 4.6 MMOL/L (3.5-5.1); Total Protein 6.3 G/DL (6.4-8.2)
[2021-08-09] MEDS ORDERED: FUROSEMIDE 40 MG/4 ML VIAL IV STA (11:06)
[2021-08-09 11:15] LABS: Basophils % 0.3 % (0.0-0.8); Eosinophils # 0.1 10*3/uL (0.0-0.87); Eosinophils % 0.4 % (0.00-10.9); Hematocrit 43.9 VOL% (35.7-47.0); Immature Granulocytes % 1.2 %; Immature Granulocytes Absolute 0.17 #; Lymphocytes # 0.2 10*3/uL (1.4-4.0); Lymphocytes % 1.6 % (21.3-54.2); Mean Corpuscular HGB Conc 29.6 GM/DL (32-36); Mean Corpuscular Volume 110.6 FL (87-102); Mean Platelet Volume 11.5 FL (9.6-12.0); Monocytes # 0.5 10*3/uL (0.11-0.8); Monocytes % 3.6 % (1.7-12.7); NRBC # 0.05 10*3/uL; Neutrophils % 92.9 % (38.7-73.9); Platelet Count 135 T/CUMM (130-400); Red Blood Count 3.97 MC/CUMM (3.8-5.5); Red Cell Distribution Width 15.9 % (9.3-17.3); White Blood Count 14.6 T/CUMM (4-12)
[2021-08-09 11:34] LABS: Lymphocytes 2 % (20-55); Platelet Estimate Normal; Total Cells Counted 100
[2021-08-09] MEDS ORDERED: DIGOXIN 0.5 MG/2 ML AMP IV ONE ×2 (13:00→13:30)
[2021-08-09] MEDS: MEROPENEM 500 MG in SODIUM CHLORIDE 0.9% 100 ML IV SCH ×2 (13:45→20:10)
[2021-08-09 14:25] LABS: RBC,Urine 128 /HPF (0-4)
[2021-08-09 14:27] LABS: Bilirubin,Urine Negative (Negative); Blood, Urine Moderate mg/dL (Negative); Glucose,Urine (UA) >1000 mg/dL (Negative); Ketones,Urine Negative (Negative); Nitrite,Urine Negative (Negative); Protein,Urine >=300 mg/dL (Negative); Urine Appearance Clear (Clear); Urine Color Yellow (Yellow); Urine Specific Gravity 1.025 (1.001-1.035); Urine Urobilinogen 0.2 eU/dL (<2.0); Urine pH 5.5 (4.5-8.0)
[2021-08-09] MEDS: PILOCARPINE 5 MG TABLET PO SCH ×2 (14:32→20:22)
[2021-08-09] MEDS ORDERED: GLUCAGON 1 MG VIAL IM PRN (16:22)
[2021-08-09] MEDS: INSULIN LISPRO 100 UNIT/ML SUBCUT SCH ×2 (17:19→20:21)
[2021-08-09] MEDS ORDERED: DILTIAZEM 50 MG/10 ML VIAL IV ONE (17:24)
[2021-08-09] MEDS: DILTIAZEM INJ 100 MG in SODIUM CHLORIDE 0.9% 100 ML IV SCH (17:45)
[2021-08-09] MEDS: ALBUTEROL/IPRATROPIUM 3 ML NEB RESP TX SCH (18:21)
[2021-08-09 20:00] LABS: ABG Base Excess 1.5 MMOL/L (-2.5-2.5); ABG HCO3 25.6 MMOL/L (20-26); ABG Oxygen Saturation 93.2 % (95-100); ABG PO2 67.3 MM HG (80-95); ABG TCO2 28.1 MMOL/L (23-27)
[2021-08-09 20:14] LABS: ABG PCO2 70.9 MM HG (35-48)
[2021-08-09] MEDS: azaTHIOprine 50 MG TABLET PO SCH (20:21)
[2021-08-09] MEDS: POTASSIUM CHLORIDE 10 MEQ TABLET PO SCH (20:21)
[2021-08-09] MEDS: BUDESONIDE/FORMOTEROL 160-4.5 INHALER 6 GM INH SCH (20:22)
[2021-08-09] MEDS: ATORVASTATIN 40 MG TABLET PO SCH (20:22)
[2021-08-09] MEDS: MAGNESIUM CHLORIDE 64 MG TABLET PO SCH (20:22)
[2021-08-09] MEDS: METOPROLOL TARTRATE 25 MG TABLET PO SCH (20:22)
[2021-08-09] MEDS ORDERED: predniSONE 20 MG TABLET PO SCH (21:00)
[2021-08-09] MEDS: ACETAMINOPHEN 325 MG/10.15 ML UDCUP PO PRN (22:22)
[2021-08-10] MEDS: ALBUTEROL/IPRATROPIUM 3 ML NEB RESP TX SCH ×4 (00:02→19:17)
[2021-08-10 03:19] LABS: ABG Base Excess 3.4 MMOL/L (-2.5-2.5); ABG HCO3 27.4 MMOL/L (20-26); ABG Oxygen Saturation 96.6 % (95-100); ABG PCO2 65.9 MM HG (35-48); ABG PH 7.293 (7.35-7.45); ABG PO2 87.3 MM HG (80-95)
[2021-08-10 04:20] LABS: Calcium 8.1 MG/DL (8.5-10.1); Osmolality,Calculated 288.7 MOS/KG (273-304); Potassium 5.3 MMOL/L (3.5-5.1)
[2021-08-10] MEDS: MEROPENEM 500 MG in SODIUM CHLORIDE 0.9% 100 ML IV SCH ×2 (05:20→16:43)
[2021-08-10] MEDS: LEVOTHYROXINE 137 MCG TABLET PO SCH (05:32)
[2021-08-10] MEDS: INSULIN LISPRO 100 UNIT/ML SUBCUT SCH ×4 (07:29→21:34)
[2021-08-10] MEDS: POLYETHYLENE GLYCOL POWDER 17 GM PACK PO SCH (08:18)
[2021-08-10] MEDS: DULoxetine 30 MG CAPSULE PO SCH (08:19)
[2021-08-10] MEDS: ESTRADIOL 1 MG TABLET PO SCH (08:19)
[2021-08-10] MEDS: CALCIUM (CARBONATE)/VITAMIN D 600 MG-400 UNIT TABLET PO SCH (08:21)
[2021-08-10] MEDS: PILOCARPINE 5 MG TABLET PO SCH ×3 (08:21→21:11)
[2021-08-10] MEDS: THEOPHYLLINE ER (24 HR) 400 MG CAPSULE PO SCH (08:22)
[2021-08-10] MEDS: METOPROLOL TARTRATE 25 MG TABLET PO SCH ×2 (08:22→21:11)
[2021-08-10] MEDS: CETIRIZINE 10 MG TABLET PO SCH (08:22)
[2021-08-10] MEDS: FUROSEMIDE 20 MG TABLET PO SCH (08:22)
[2021-08-10] MEDS: TAMSULOSIN 0.4 MG CAPSULE PO SCH (08:23)
[2021-08-10] MEDS: AMIODARONE 200 MG TABLET PO SCH (08:23)
[2021-08-10] MEDS: azaTHIOprine 50 MG TABLET PO SCH ×2 (08:23→21:11)
[2021-08-10] MEDS: MAGNESIUM CHLORIDE 64 MG TABLET PO SCH (08:51)
[2021-08-10] MEDS: POTASSIUM CHLORIDE 10 MEQ TABLET PO SCH (08:51)
[2021-08-10] MEDS: BUDESONIDE/FORMOTEROL 160-4.5 INHALER 6 GM INH SCH ×2 (08:52→21:11)
[2021-08-10] MEDS ORDERED: INSULIN GLARGINE 100 UNIT/ML SUBCUT SCH (09:00)
[2021-08-10] MEDS ORDERED: SODIUM CHLORIDE 0.9% 250 ML IV ONE ×3 (09:30→15:54)
[2021-08-10] MEDS: SODIUM CHLORIDE 0.45% 1,000 ML IV SCH ×2 (09:57→23:17)
[2021-08-10] MEDS: ENOXAPARIN 30 MG/0.3 ML SYRINGE SUBCUT SCH (10:50)
[2021-08-10] MEDS: DILTIAZEM INJ 100 MG in SODIUM CHLORIDE 0.9% 100 ML IV SCH ×2 (11:59→18:08)
[2021-08-10] MEDS: DESITIN 4OZ/NYSTATIN 15 GRAM MIXTURE PASTE TOP SCH ×2 (16:24→21:11)
[2021-08-10] MEDS: MELATONIN 3 MG TABLET PO PRN (21:11)
[2021-08-10] MEDS: ATORVASTATIN 40 MG TABLET PO SCH (21:11)
[2021-08-10] MEDS: DEXTROSE 10% 250 ML BAG IV PRN (21:35)
[2021-08-11] MEDS: ALBUTEROL/IPRATROPIUM 3 ML NEB RESP TX SCH ×4 (00:16→19:45)
[2021-08-11 04:06] LABS: ABG Base Excess 2.9 MMOL/L (-2.5-2.5); ABG PCO2 56.1 MM HG (35-48); ABG PH 7.334 (7.35-7.45); ABG TCO2 27.3 MMOL/L (23-27)
[2021-08-11 04:22] LABS: Basophils % 0.2 % (0.0-0.8); Eosinophils # 0.1 10*3/uL (0.0-0.87); Eosinophils % 0.6 % (0.00-10.9); Hematocrit 33.1 VOL% (35.7-47.0); Immature Granulocytes % 0.7 %; Immature Granulocytes Absolute 0.07 #; Lymphocytes # 0.3 10*3/uL (1.4-4.0); Lymphocytes % 2.7 % (21.3-54.2); Mean Corpuscular HGB Conc 29.9 GM/DL (32-36); Mean Corpuscular Volume 109.6 FL (87-102); Mean Platelet Volume 10.7 FL (9.6-12.0); Monocytes # 0.5 10*3/uL (0.11-0.8); Monocytes % 4.5 % (1.7-12.7); NRBC # 0.03 10*3/uL; Neutrophils % 91.3 % (38.7-73.9); Red Cell Distribution Width 15.5 % (9.3-17.3); White Blood Count 10.5 T/CUMM (4-12)
[2021-08-11 04:27] LABS: Hemoglobin 9.9 GM/DL (12.0-16.0); Platelet Count 95 T/CUMM (130-400); Red Blood Count 3.02 MC/CUMM (3.8-5.5)
[2021-08-11 04:40] LABS: Band Neutrophils 1 % (0-10); Eosinophils 1 % (0-10); Lymphocytes 1 % (20-55); Total Cells Counted 100
[2021-08-11 04:41] LABS: Anisocytosis 1+; Platelet Estimate Decreased
[2021-08-11 04:54] LABS: Calcium 7.5 MG/DL (8.5-10.1); Osmolality,Calculated 283.8 MOS/KG (273-304); Potassium 4.6 MMOL/L (3.5-5.1)
[2021-08-11] MEDS ORDERED: DEXTROSE 5% NACL 0.45% 1,000 ML IV SCH (05:00)
[2021-08-11] MEDS: DEXTROSE 10% 250 ML BAG IV PRN (05:22)
[2021-08-11] MEDS: MEROPENEM 500 MG in SODIUM CHLORIDE 0.9% 100 ML IV SCH (05:51)
[2021-08-11] MEDS: LEVOTHYROXINE 137 MCG TABLET PO SCH (05:52)
[2021-08-11] MEDS ORDERED: INSULIN LISPRO 100 UNIT/ML SUBCUT SCH (08:00)
[2021-08-11] MEDS: INSULIN LISPRO 100 UNIT/ML SUBCUT SCH ×4 (08:08→21:22)
[2021-08-11] MEDS ORDERED: predniSONE 5 MG TABLET PO SCH (09:00)
[2021-08-11] MEDS: TAMSULOSIN 0.4 MG CAPSULE PO SCH (09:09)
[2021-08-11] MEDS: FUROSEMIDE 20 MG TABLET PO SCH (09:09)
[2021-08-11] MEDS: AMIODARONE 200 MG TABLET PO SCH (09:09)
[2021-08-11] MEDS: METOPROLOL TARTRATE 25 MG TABLET PO SCH ×2 (09:09→20:29)
[2021-08-11] MEDS: CALCIUM (CARBONATE)/VITAMIN D 600 MG-400 UNIT TABLET PO SCH (09:09)
[2021-08-11] MEDS: THEOPHYLLINE ER (24 HR) 400 MG CAPSULE PO SCH (09:09)
[2021-08-11] MEDS: DESITIN 4OZ/NYSTATIN 15 GRAM MIXTURE PASTE TOP SCH ×2 (09:10→20:29)
[2021-08-11] MEDS: DULoxetine 30 MG CAPSULE PO SCH (09:10)
[2021-08-11] MEDS: azaTHIOprine 50 MG TABLET PO SCH ×2 (09:10→20:28)
[2021-08-11] MEDS: POLYETHYLENE GLYCOL POWDER 17 GM PACK PO SCH (09:10)
[2021-08-11] MEDS: CETIRIZINE 10 MG TABLET PO SCH (09:10)
[2021-08-11] MEDS: PILOCARPINE 5 MG TABLET PO SCH ×3 (09:10→20:27)
[2021-08-11] MEDS: ESTRADIOL 1 MG TABLET PO SCH (09:10)
[2021-08-11] MEDS: BUDESONIDE/FORMOTEROL 160-4.5 INHALER 6 GM INH SCH ×2 (09:23→20:29)
[2021-08-11] MEDS ORDERED: predniSONE 5 MG TABLET PO ONE (09:30)
[2021-08-11] MEDS: ENOXAPARIN 30 MG/0.3 ML SYRINGE SUBCUT SCH (11:01)
[2021-08-11] MEDS ORDERED: LEVOFLOXACIN 750 MG TABLET PO SCH (12:00)
[2021-08-11] MEDS: LEVOFLOXACIN 750 MG TABLET PO SCH (12:12)
[2021-08-11] MEDS ORDERED: DEXTROSE 50% 25 GM/50 ML VIAL IV PRN (14:23)
[2021-08-11] MEDS: INSULIN GLARGINE 100 UNIT/ML SUBCUT SCH (15:54)
[2021-08-11] MEDS: DILTIAZEM 30 MG TABLET PO SCH ×2 (16:33→20:28)
[2021-08-11] MEDS: predniSONE 20 MG TABLET PO SCH (20:26)
[2021-08-11] MEDS: ATORVASTATIN 40 MG TABLET PO SCH (20:27)
[2021-08-11] MEDS: MELATONIN 3 MG TABLET PO PRN (20:29)
[2021-08-12] MEDS: ALBUTEROL/IPRATROPIUM 3 ML NEB RESP TX SCH ×4 (01:00→18:26)
[2021-08-12] MEDS: GABAPENTIN 100 MG CAPSULE PO SCH ×4 (02:57→21:00)
[2021-08-12 05:22] LABS: Basophils % 0.1 % (0.0-0.8); Hematocrit 34.3 VOL% (35.7-47.0); Hemoglobin 10.4 GM/DL (12.0-16.0); Immature Granulocytes % 0.9 %; Immature Granulocytes Absolute 0.08 #; Lymphocytes # 0.1 10*3/uL (1.4-4.0); Lymphocytes % 1.3 % (21.3-54.2); Mean Corpuscular HGB Conc 30.3 GM/DL (32-36); Mean Corpuscular Volume 107.9 FL (87-102); Mean Platelet Volume 10.5 FL (9.6-12.0); Monocytes # 0.2 10*3/uL (0.11-0.8); Monocytes % 2.1 % (1.7-12.7); NRBC # 0.03 10*3/uL; Neutrophils % 95.6 % (38.7-73.9); Platelet Count 103 T/CUMM (130-400); Red Blood Count 3.18 MC/CUMM (3.8-5.5); Red Cell Distribution Width 15.4 % (9.3-17.3); White Blood Count 9.1 T/CUMM (4-12)
[2021-08-12 05:36] LABS: Calcium 7.7 MG/DL (8.5-10.1); Potassium 5.3 MMOL/L (3.5-5.1)
[2021-08-12 05:42] LABS: Lymphocytes 4 % (20-55); Nucleated Red Blood Cells 1 (0-5); Total Cells Counted 100
[2021-08-12] MEDS: LEVOTHYROXINE 137 MCG TABLET PO SCH (06:06)
[2021-08-12] MEDS: INSULIN LISPRO 100 UNIT/ML SUBCUT SCH ×4 (09:33→20:51)
[2021-08-12] MEDS: CALCIUM (CARBONATE)/VITAMIN D 600 MG-400 UNIT TABLET PO SCH (09:47)
[2021-08-12] MEDS: THEOPHYLLINE ER (24 HR) 400 MG CAPSULE PO SCH (09:47)
[2021-08-12] MEDS: TAMSULOSIN 0.4 MG CAPSULE PO SCH (09:47)
[2021-08-12] MEDS: DULoxetine 30 MG CAPSULE PO SCH (09:47)
[2021-08-12] MEDS: PILOCARPINE 5 MG TABLET PO SCH ×3 (09:48→20:52)
[2021-08-12] MEDS: METOPROLOL TARTRATE 25 MG TABLET PO SCH ×2 (09:48→20:51)
[2021-08-12] MEDS: FUROSEMIDE 20 MG TABLET PO SCH (09:49)
[2021-08-12] MEDS: DILTIAZEM CD 240 MG CAPSULE PO SCH (09:49)
[2021-08-12] MEDS: predniSONE 5 MG TABLET PO SCH ×2 (09:50→20:50)
[2021-08-12] MEDS: azaTHIOprine 50 MG TABLET PO SCH ×2 (09:50→20:48)
[2021-08-12] MEDS: CETIRIZINE 10 MG TABLET PO SCH (09:51)
[2021-08-12] MEDS: AMIODARONE 200 MG TABLET PO SCH (09:51)
[2021-08-12] MEDS: ESTRADIOL 1 MG TABLET PO SCH (09:52)
[2021-08-12] MEDS: INSULIN GLARGINE 100 UNIT/ML SUBCUT SCH (09:53)
[2021-08-12] MEDS: ENOXAPARIN 30 MG/0.3 ML SYRINGE SUBCUT SCH (09:53)
[2021-08-12] MEDS: DESITIN 4OZ/NYSTATIN 15 GRAM MIXTURE PASTE TOP SCH ×2 (10:02→20:52)
[2021-08-12] MEDS: POLYETHYLENE GLYCOL POWDER 17 GM PACK PO SCH (10:02)
[2021-08-12] MEDS: BUDESONIDE/FORMOTEROL 160-4.5 INHALER 6 GM INH SCH ×2 (10:02→21:23)
[2021-08-12] MEDS: DILTIAZEM 30 MG TABLET PO SCH (10:44)
[2021-08-12] MEDS: predniSONE 20 MG TABLET PO SCH (10:44)
[2021-08-12] MEDS: ATORVASTATIN 40 MG TABLET PO SCH (20:48)
[2021-08-12] MEDS: ZALEPLON 5 MG CAPSULE PO PRN (20:48)
[2021-08-13] MEDS: ALBUTEROL/IPRATROPIUM 3 ML NEB RESP TX SCH ×4 (00:12→19:32)
[2021-08-13 03:49] LABS: Basophils % 0.1 % (0.0-0.8); Hematocrit 33.9 VOL% (35.7-47.0); Hemoglobin 10.5 GM/DL (12.0-16.0); Immature Granulocytes % 0.8 %; Immature Granulocytes Absolute 0.07 #; Lymphocytes # 0.1 10*3/uL (1.4-4.0); Lymphocytes % 1.5 % (21.3-54.2); Mean Corpuscular Volume 105.3 FL (87-102); Mean Platelet Volume 10.9 FL (9.6-12.0); Monocytes # 0.3 10*3/uL (0.11-0.8); Monocytes % 2.7 % (1.7-12.7); NRBC # 0.03 10*3/uL; Neutrophils % 94.9 % (38.7-73.9); Platelet Count 112 T/CUMM (130-400); Red Blood Count 3.22 MC/CUMM (3.8-5.5); Red Cell Distribution Width 15.1 % (9.3-17.3); White Blood Count 9.1 T/CUMM (4-12)
[2021-08-13 04:05] LABS: Calcium 7.3 MG/DL (8.5-10.1); Osmolality,Calculated 285.5 MOS/KG (273-304); Potassium 5.2 MMOL/L (3.5-5.1)
[2021-08-13 04:06] LABS: Lymphocytes 4 % (20-55); Nucleated Red Blood Cells 1 (0-5); Total Cells Counted 100
[2021-08-13] MEDS: LEVOTHYROXINE 137 MCG TABLET PO SCH (07:06)
[2021-08-13] MEDS: INSULIN LISPRO 100 UNIT/ML SUBCUT SCH ×4 (07:36→21:00)
[2021-08-13] MEDS: ESTRADIOL 1 MG TABLET PO SCH (08:19)
[2021-08-13] MEDS: AMIODARONE 200 MG TABLET PO SCH (08:20)
[2021-08-13] MEDS: CETIRIZINE 10 MG TABLET PO SCH (08:21)
[2021-08-13] MEDS: METOPROLOL TARTRATE 25 MG TABLET PO SCH ×2 (08:21→21:02)
[2021-08-13] MEDS: THEOPHYLLINE ER (24 HR) 400 MG CAPSULE PO SCH (08:21)
[2021-08-13] MEDS: CALCIUM (CARBONATE)/VITAMIN D 600 MG-400 UNIT TABLET PO SCH (08:22)
[2021-08-13] MEDS: GABAPENTIN 100 MG CAPSULE PO SCH ×3 (08:22→21:01)
[2021-08-13] MEDS: DULoxetine 30 MG CAPSULE PO SCH (08:22)
[2021-08-13] MEDS: TAMSULOSIN 0.4 MG CAPSULE PO SCH (08:23)
[2021-08-13] MEDS: DILTIAZEM CD 240 MG CAPSULE PO SCH (08:24)
[2021-08-13] MEDS: FUROSEMIDE 20 MG TABLET PO SCH (08:25)
[2021-08-13] MEDS: azaTHIOprine 50 MG TABLET PO SCH ×2 (08:25→21:01)
[2021-08-13] MEDS: predniSONE 5 MG TABLET PO SCH ×2 (08:25→21:01)
[2021-08-13] MEDS: PILOCARPINE 5 MG TABLET PO SCH ×3 (08:25→21:00)
[2021-08-13] MEDS: BUDESONIDE/FORMOTEROL 160-4.5 INHALER 6 GM INH SCH ×2 (08:27→21:05)
[2021-08-13] MEDS: DESITIN 4OZ/NYSTATIN 15 GRAM MIXTURE PASTE TOP SCH ×2 (08:27→21:05)
[2021-08-13 08:28] VITALS: BP 136/69
[2021-08-13] MEDS: INSULIN GLARGINE 100 UNIT/ML SUBCUT SCH ×2 (08:28→10:31)
[2021-08-13] MEDS: POLYETHYLENE GLYCOL POWDER 17 GM PACK PO SCH (08:36)
[2021-08-13] MEDS: ENOXAPARIN 30 MG/0.3 ML SYRINGE SUBCUT SCH (10:39)
[2021-08-13] MEDS: LEVOFLOXACIN 750 MG TABLET PO SCH (12:37)
[2021-08-13] MEDS: ZALEPLON 5 MG CAPSULE PO PRN (21:00)
[2021-08-13] MEDS: ATORVASTATIN 40 MG TABLET PO SCH (21:02)
[2021-08-14] MEDS: ALBUTEROL/IPRATROPIUM 3 ML NEB RESP TX SCH ×4 (00:03→19:45)
[2021-08-14 04:14] LABS: Basophils % 0.1 % (0.0-0.8); Hematocrit 32.8 VOL% (35.7-47.0); Hemoglobin 10.3 GM/DL (12.0-16.0); Immature Granulocytes % 0.5 %; Immature Granulocytes Absolute 0.05 #; Lymphocytes # 0.1 10*3/uL (1.4-4.0); Lymphocytes % 1.4 % (21.3-54.2); Mean Corpuscular HGB Conc 31.4 GM/DL (32-36); Mean Corpuscular Volume 104.8 FL (87-102); Monocytes # 0.2 10*3/uL (0.11-0.8); Monocytes % 2.3 % (1.7-12.7); NRBC # 0.02 10*3/uL; Neutrophils % 95.7 % (38.7-73.9); Platelet Count 115 T/CUMM (130-400); Red Blood Count 3.13 MC/CUMM (3.8-5.5); White Blood Count 9.2 T/CUMM (4-12)
[2021-08-14 04:37] LABS: Lymphocytes 4 % (20-55); Total Cells Counted 100
[2021-08-14 04:38] LABS: Platelet Estimate Adequate
[2021-08-14 04:41] LABS: Calcium 7.8 MG/DL (8.5-10.1); Osmolality,Calculated 282.5 MOS/KG (273-304); Potassium 5.1 MMOL/L (3.5-5.1)
[2021-08-14] MEDS: LEVOTHYROXINE 137 MCG TABLET PO SCH (05:06)
[2021-08-14] MEDS: INSULIN LISPRO 100 UNIT/ML SUBCUT SCH ×4 (08:43→20:39)
[2021-08-14] MEDS: ESTRADIOL 1 MG TABLET PO SCH (09:21)
[2021-08-14] MEDS: TAMSULOSIN 0.4 MG CAPSULE PO SCH (09:22)
[2021-08-14] MEDS: AMIODARONE 200 MG TABLET PO SCH (09:23)
[2021-08-14] MEDS: DULoxetine 30 MG CAPSULE PO SCH (09:23)
[2021-08-14] MEDS: METOPROLOL TARTRATE 25 MG TABLET PO SCH ×2 (09:23→20:39)
[2021-08-14] MEDS: DILTIAZEM CD 240 MG CAPSULE PO SCH (09:24)
[2021-08-14] MEDS: CALCIUM (CARBONATE)/VITAMIN D 600 MG-400 UNIT TABLET PO SCH (09:24)
[2021-08-14] MEDS: FUROSEMIDE 40 MG TABLET PO SCH (09:24)
[2021-08-14] MEDS: predniSONE 5 MG TABLET PO SCH ×2 (09:24→20:39)
[2021-08-14] MEDS: GABAPENTIN 100 MG CAPSULE PO SCH (09:25)
[2021-08-14] MEDS: CETIRIZINE 10 MG TABLET PO SCH (09:25)
[2021-08-14] MEDS: PILOCARPINE 5 MG TABLET PO SCH ×3 (09:26→20:39)
[2021-08-14] MEDS: THEOPHYLLINE ER (24 HR) 400 MG CAPSULE PO SCH (09:26)
[2021-08-14] MEDS: azaTHIOprine 50 MG TABLET PO SCH ×2 (09:26→15:25)
[2021-08-14] MEDS: POLYETHYLENE GLYCOL POWDER 17 GM PACK PO SCH (09:28)
[2021-08-14] MEDS: INSULIN GLARGINE 100 UNIT/ML SUBCUT SCH (09:30)
[2021-08-14] MEDS: BUDESONIDE/FORMOTEROL 160-4.5 INHALER 6 GM INH SCH ×2 (09:32→20:40)
[2021-08-14] MEDS: DESITIN 4OZ/NYSTATIN 15 GRAM MIXTURE PASTE TOP SCH ×2 (09:33→20:40)
[2021-08-14] MEDS: ENOXAPARIN 30 MG/0.3 ML SYRINGE SUBCUT SCH (12:06)
[2021-08-14] MEDS: ACETAMINOPHEN 325 MG/10.15 ML UDCUP PO PRN (12:08)
[2021-08-14] MEDS: GABAPENTIN 300 MG CAPSULE PO SCH ×2 (15:24→20:39)
[2021-08-14] MEDS: ATORVASTATIN 40 MG TABLET PO SCH (20:39)
[2021-08-14] MEDS: ZALEPLON 5 MG CAPSULE PO PRN (20:39)
[2021-08-15] MEDS: LEVOTHYROXINE 137 MCG TABLET PO SCH (06:19)
[2021-08-15] MEDS: ALBUTEROL/IPRATROPIUM 3 ML NEB RESP TX SCH ×4 (07:09→20:09)
[2021-08-15 08:15] LABS: Basophils % 0.1 % (0.0-0.8); Hematocrit 33.4 VOL% (35.7-47.0); Hemoglobin 10.2 GM/DL (12.0-16.0); Immature Granulocytes % 0.6 %; Immature Granulocytes Absolute 0.05 #; Lymphocytes # 0.2 10*3/uL (1.4-4.0); Lymphocytes % 1.8 % (21.3-54.2); Mean Corpuscular HGB Conc 30.5 GM/DL (32-36); Mean Corpuscular Volume 105.7 FL (87-102); Mean Platelet Volume 10.5 FL (9.6-12.0); Monocytes # 0.2 10*3/uL (0.11-0.8); Monocytes % 2.7 % (1.7-12.7); NRBC # 0.02 10*3/uL; Neutrophils % 94.8 % (38.7-73.9); Platelet Count 130 T/CUMM (130-400); Red Blood Count 3.16 MC/CUMM (3.8-5.5); Red Cell Distribution Width 14.8 % (9.3-17.3); White Blood Count 8.3 T/CUMM (4-12)
[2021-08-15 08:30] LABS: Calcium 7.8 MG/DL (8.5-10.1); Osmolality,Calculated 283.2 MOS/KG (273-304)
[2021-08-15] MEDS: INSULIN LISPRO 100 UNIT/ML SUBCUT SCH ×4 (08:33→21:54)
[2021-08-15 08:40] LABS: Band Neutrophils 8 % (0-10); Lymphocytes 4 % (20-55); Platelet Estimate Adequate; Total Cells Counted 100
[2021-08-15 08:46] LABS: Anisocytosis 1+; Tear Drop Cells Few
[2021-08-15 08:47] LABS: Basophilic Stippling Slight; Macrocytosis 1+
[2021-08-15] MEDS: THEOPHYLLINE ER (24 HR) 400 MG CAPSULE PO SCH (08:58)
[2021-08-15] MEDS: POLYETHYLENE GLYCOL POWDER 17 GM PACK PO SCH (08:58)
[2021-08-15] MEDS: CETIRIZINE 10 MG TABLET PO SCH (08:59)
[2021-08-15] MEDS: DILTIAZEM CD 240 MG CAPSULE PO SCH (08:59)
[2021-08-15] MEDS: TAMSULOSIN 0.4 MG CAPSULE PO SCH (08:59)
[2021-08-15] MEDS: DULoxetine 30 MG CAPSULE PO SCH (09:00)
[2021-08-15] MEDS: PILOCARPINE 5 MG TABLET PO SCH ×3 (09:00→20:53)
[2021-08-15] MEDS: CALCIUM (CARBONATE)/VITAMIN D 600 MG-400 UNIT TABLET PO SCH (09:00)
[2021-08-15] MEDS: AMIODARONE 200 MG TABLET PO SCH (09:00)
[2021-08-15] MEDS: predniSONE 5 MG TABLET PO SCH ×2 (09:01→20:53)
[2021-08-15] MEDS: FUROSEMIDE 40 MG TABLET PO SCH (09:01)
[2021-08-15] MEDS: GABAPENTIN 300 MG CAPSULE PO SCH ×3 (09:01→20:53)
[2021-08-15] MEDS: METOPROLOL TARTRATE 25 MG TABLET PO SCH ×2 (09:01→20:53)
[2021-08-15] MEDS: ESTRADIOL 1 MG TABLET PO SCH (09:03)
[2021-08-15] MEDS: INSULIN GLARGINE 100 UNIT/ML SUBCUT SCH (09:04)
[2021-08-15] MEDS: BUDESONIDE/FORMOTEROL 160-4.5 INHALER 6 GM INH SCH ×2 (09:07→21:30)
[2021-08-15] MEDS: azaTHIOprine 50 MG TABLET PO SCH ×2 (09:09→20:53)
[2021-08-15] MEDS: DESITIN 4OZ/NYSTATIN 15 GRAM MIXTURE PASTE TOP SCH ×2 (09:10→20:55)
[2021-08-15] MEDS: ENOXAPARIN 30 MG/0.3 ML SYRINGE SUBCUT SCH (12:15)
[2021-08-15] MEDS: ZALEPLON 5 MG CAPSULE PO PRN (20:53)
[2021-08-15] MEDS: ATORVASTATIN 40 MG TABLET PO SCH (20:53)
[2021-08-16] MEDS: ALBUTEROL/IPRATROPIUM 3 ML NEB RESP TX SCH ×2 (01:22→07:09)
[2021-08-16] MEDS: LEVOTHYROXINE 137 MCG TABLET PO SCH (06:04)
[2021-08-16 06:52] LABS: Basophils % 0.1 % (0.0-0.8); Hematocrit 32.3 VOL% (35.7-47.0); Hemoglobin 10.2 GM/DL (12.0-16.0); Immature Granulocytes % 0.5 %; Immature Granulocytes Absolute 0.04 #; Lymphocytes # 0.2 10*3/uL (1.4-4.0); Lymphocytes % 1.7 % (21.3-54.2); Mean Corpuscular HGB Conc 31.6 GM/DL (32-36); Mean Corpuscular Volume 103.5 FL (87-102); Mean Platelet Volume 10.2 FL (9.6-12.0); Monocytes # 0.3 10*3/uL (0.11-0.8); Monocytes % 3.4 % (1.7-12.7); NRBC # 0.02 10*3/uL; Neutrophils % 94.3 % (38.7-73.9); Platelet Count 130 T/CUMM (130-400); Red Blood Count 3.12 MC/CUMM (3.8-5.5); Red Cell Distribution Width 14.6 % (9.3-17.3); White Blood Count 8.7 T/CUMM (4-12)
[2021-08-16 07:19] LABS: Anisocytosis 2+; Band Neutrophils 2 % (0-10); Lymphocytes 2 % (20-55); Macrocytosis 1+; Platelet Estimate Adequate; Total Cells Counted 100
[2021-08-16 07:20] LABS: Burr Cells Few
[2021-08-16 07:30] LABS: Calcium 7.9 MG/DL (8.5-10.1); Osmolality,Calculated 282.4 MOS/KG (273-304); Potassium 5.2 MMOL/L (3.5-5.1)
[2021-08-16] MEDS: INSULIN LISPRO 100 UNIT/ML SUBCUT SCH (07:45)
[2021-08-16] MEDS: ESTRADIOL 1 MG TABLET PO SCH (09:51)
[2021-08-16] MEDS: FUROSEMIDE 40 MG TABLET PO SCH (09:52)
[2021-08-16] MEDS: azaTHIOprine 50 MG TABLET PO SCH (09:52)
[2021-08-16] MEDS: CALCIUM (CARBONATE)/VITAMIN D 600 MG-400 UNIT TABLET PO SCH (09:52)
[2021-08-16] MEDS: PILOCARPINE 5 MG TABLET PO SCH (09:52)
[2021-08-16] MEDS: THEOPHYLLINE ER (24 HR) 400 MG CAPSULE PO SCH (09:53)
[2021-08-16] MEDS: DILTIAZEM CD 240 MG CAPSULE PO SCH (09:53)
[2021-08-16] MEDS: TAMSULOSIN 0.4 MG CAPSULE PO SCH (09:53)
[2021-08-16] MEDS: DULoxetine 30 MG CAPSULE PO SCH (09:53)
[2021-08-16] MEDS: CETIRIZINE 10 MG TABLET PO SCH (09:54)
[2021-08-16] MEDS: METOPROLOL TARTRATE 25 MG TABLET PO SCH (09:54)
[2021-08-16] MEDS: GABAPENTIN 300 MG CAPSULE PO SCH (09:54)
[2021-08-16] MEDS: AMIODARONE 200 MG TABLET PO SCH (09:58)
[2021-08-16] MEDS: predniSONE 5 MG TABLET PO SCH (09:58)
[2021-08-16] MEDS: ENOXAPARIN 30 MG/0.3 ML SYRINGE SUBCUT SCH (09:59)
[2021-08-16] MEDS: INSULIN GLARGINE 100 UNIT/ML SUBCUT SCH (09:59)
[2021-08-16] MEDS: POLYETHYLENE GLYCOL POWDER 17 GM PACK PO SCH (10:00)
[2021-08-16] MEDS: BUDESONIDE/FORMOTEROL 160-4.5 INHALER 6 GM INH SCH (10:00)
[2021-08-16] MEDS: DESITIN 4OZ/NYSTATIN 15 GRAM MIXTURE PASTE TOP SCH (10:23)
== END 2021-08-16 12:13 | DRG 189 ==
LOC: N.ED 09:29 → SUATTDRO 12:05 → N.EDINP 12:05 → N.ICU 12:24
PROVIDERS: ADMIT Internal Medicine; ATTEND Internal Medicine